=== PATIENT | female | born 1990 | race Caucasian/White ===

== ENCOUNTER 2017-12-17 03:10 | Inpatient (IN) | payer MEDICAID, OTHER ==
[2017-12-17] MEDS ORDERED: NACL 0.9% 1000 ML 1,000 ML IV ONE (04:40)
[2017-12-17 05:16] LABS: Basophils # (Auto) 0.1 K/mm3 (0.0-0.1); Basophils % (Auto) 0.5 % (0.0-1.8); Eosinophils # (Auto) 0.1 K/mm3 (0.0-0.4); Eosinophils % (Auto) 1.3 % (0.0-4.3); Hematocrit 34.7 % (30.3-42.9); Hemoglobin 12.1 gm/dl (10.1-14.3); Lymphocytes # (Auto) 1.7 K/mm3 (1.2-5.4); Lymphocytes % (Auto) 16.3 % (13.4-35.0); Mean Corpuscular HGB Conc 35 % (30-34); Mean Corpuscular Hemoglobin 32 pg (28-32); Mean Corpuscular Volume 93 fl (79-97); Monocytes # (Auto) 0.5 K/mm3 (0.0-0.8); Monocytes % (Auto) 5.1 % (0.0-7.3); Platelet Count 278 K/mm3 (140-440); Red Blood Count 3.73 M/mm3 (3.65-5.03); Red Cell Distribution Width 13.1 % (13.2-15.2)
[2017-12-17 05:31] LABS: Alanine Aminotransferase 13 units/L (7-56); Albumin 4.1 g/dL (3.9-5); BUN/Creatinine Ratio 12; Blood Urea Nitrogen 6 mg/dL (7-17); Calcium 9.4 mg/dL (8.4-10.2); Hemolysis Index 0
--- NOTE | 2017-12-17 07:01 | Emergency Department Report ---
ED Abdominal Pain HPI - General Chief Complaint: Abdominal Pain Stated Complaint: 15WKS WITH ABD PAIN Time Seen by Provider: 12/17/17 06:53 Source: patient Mode of arrival: Ambulatory Limitations: No Limitations - History of Present Illness Initial Comments: Patient is 27 years old female 2 para 1. Patient stated that she is 15 weeks . Patient presented to the ER complaining of upper abdominal pain mainly epigastric. Patient stated that pain woke her up from sleep. Patient stated that she is nauseated but no vomiting. She denied any fever. Patient also denied any vaginal bleeding or vaginal discharge. Complaint: abdominal pain - Related Data Home Medications Medication Instructions Recorded Confirmed Last Taken Vits96/Iron Fum/Folic 1 each PO DAILY 12/17/17 12/17/17 Unknown [ Tablet] Allergies Allergy/AdvReac Type Severity Reaction Status Date / Time No Known Allergies Allergy Verified 07/13/13 08:58 ED Review of Systems ROS: Stated complaint: 15WKS WITH ABD PAIN Other details as noted in HPI Comment: All other systems reviewed and negative Constitutional: denies: chills, fever ENT: denies: ear pain, throat pain Cardiovascular: denies: chest pain, palpitations Gastrointestinal: abdominal pain, nausea. denies: vomiting, diarrhea, constipation, hematemesis, melena, hematochezia Musculoskeletal: denies: back pain Neurological: denies: headache, weakness, numbness, paresthesias, confusion ED Past Medical Hx - Past Medical History Previous Medical History?: No Hx Hypertension: No Hx Congestive Heart Failure: No Hx Diabetes: No Hx Deep Vein Thrombosis: No Hx Renal Disease: No Hx Sickle Cell Disease: No Hx Seizures: No Hx Asthma: No Hx COPD: No Hx HIV: No - Surgical History Past Surgical History?: No - Social History Smoking Status: Never Smoker Substance Use Type: None - Medications Home Medications: Home Medications Medication Instructions Recorded Confirmed Last Taken Type Vits96/Iron Fum/Folic 1 each PO DAILY 12/17/17 12/17/17 Unknown History [ Tablet] ED Physical Exam - General Limitations: No Limitations General appearance: alert, in no apparent distress - Head Head exam: Present: atraumatic, normocephalic, normal inspection - Eye Eye exam: Present: normal appearance - ENT ENT exam: Present: normal exam, normal orophraynx, mucous membranes moist - Neck Neck exam: Present: normal inspection, full ROM. Absent: tenderness, meningismus, lymphadenopathy, thyromegaly - Respiratory Respiratory exam: Present: normal lung sounds bilaterally - Cardiovascular Cardiovascular Exam: Present: regular rate, normal rhythm, normal heart sounds - GI/Abdominal GI/Abdominal exam: Present: soft, normal bowel sounds. Absent: distended, tenderness, guarding, rebound, rigid, organomegaly, mass, bruit, pulsatile mass , hernia - Extremities Exam Extremities exam: Present: normal inspection, full ROM, normal capillary refill. Absent: pedal edema, calf tenderness - Back Exam Back exam: Present: normal inspection, full ROM - Neurological Exam Neurological exam: Present: alert, oriented X3, CN II-XII intact, normal gait, reflexes normal - Skin Skin exam: Present: warm, intact, normal color ED Course Vital Signs 12/17/17 12/17/17 12/17/17 04:26 07:18 07:20 Temperature 98 F 98.1 F Pulse Rate 75 63 Respiratory 24 14 14 Rate Blood Pressure 112/92 Blood Pressure 98/46 [Left] O2 Sat by Pulse 100 100 100 Oximetry - Reevaluation(s) Reevaluation #1: 12/17/17 10:51 I discussed the patient is Dr. Hernández train operations manager for OB. I informed the patient. She advised to admit the patient to the hospitalist and they will be consulted on the patient. ED Medical Decision Making - Lab Data Result diagrams: 12/17/17 04:43 12/17/17 04:43 - Radiology Data Radiology results: report reviewed Referring Physician: DORA LOUIE Patient Name: TATA ANDERSON Date of : 1990 Sex: Female Report Date: 2017-12-17 Report Status: Finalized Findings [facility] [address] [place] [address] Ultrasound Report Signed Patient: TATA DIANA MR#: [id number] : 1990 Acct:[id number] Age/Sex: 27 / F ADM Date: 12/17/17 Loc: ED Attending Dr: Ordering Physician: DORA LOUIE Date of Service: 09/13/18 Procedure(s): US OB <= 14 weeks fetus Accession Number(s): [id number] cc: DORA LOUIE OB ULTRASOUND History 15 weeks with abdominal pain. Technique: Transabdominal ultrasound with Doppler interrogation. Gestation: Single Position: Variable Amniotic Fluid: Qualitatively within normal limits MICHELLE = not measured cm Placenta: Anterior Placental Grade: 0 Heart Rate: 145 BPM Cervical length: Obscured BPD: 2.8 cm = 15 w 0 d HC: 10.3 cm = 14 w 6 d AC: 8.8 cm = 15 w 0 d FL: 1.7 cm = 15 w 0 d HC/AC Ratio: 1.18 Cephalic Index: 85.1 Clinical age = 14 w 0 d EDC: 06/17/18 US Gest. Age = 15 w or a d EDC: 06/10/18 IMPRESSION: Viable, single intrauterine as described. No acute abnormality is detected. Transcribed By: TTR Dictated By: CECILIA WEEKS JR, MD Electronically Authenticated By: CECILIA WEEKS JR, MD Signed Date/Time: 12/17/17 1022 DD/ 1019 TD/TT: 12/17/17 1022 Referring Physician: DORA LOUIE Patient Name: TATA ANDERSON Date of : 1990 Sex: Female Report Date: 2017-12-17 Report Status: Finalized Findings [facility] [address] [place] [address] Ultrasound Report Signed Patient: TATA DIANA MR#: [id number] : 1990 Acct:[id number] Age/Sex: 27 / F ADM Date: 12/17/17 Loc: ED Attending Dr: Ordering Physician: DORA LOUIE Date of Service: 12/17/17 Procedure(s): US abdomen limited Accession Number(s): [id number] cc: DORA LOUIE ULTRASOUND ABDOMEN LIMITED: TECHNIQUE: Transabdominal ultrasound with color Doppler interrogation. HISTORY: Right upper quadrant pain. COMPARISON: none. FINDINGS: LIVER: Normal. BILIARY SYSTEM: A few small shadowing gallstones are identified in the gallbladder. No evidence for biliary dilatation, wall thickening or surrounding fluid. The CBD measures 4 mm. PANCREAS: Normal. RIGHT KIDNEY: Normal. PROXIMAL AORTA: Normal. ASCITES: None. IMPRESSION: Cholelithiasis. No evidence for acute cholecystitis. Transcribed By: TTR Dictated By: CECILIA WEEKS JR, MD Electronically Authenticated By: CECILIA WEEKS JR, MD Signed Date/Time: 12/17/17 1019 DD/ 1018 TD/TT: 12/17/17 1019 - Medical Decision Making I discussed the patient is Dr. Mooney, he agreed to admit the patient to medical service. Critical care attestation.: If time is entered above; I have spent that time in minutes in the direct care of this critically ill patient, excluding procedure time. ED Disposition Clinical Impression: Abdominal pain affecting , Cholelithiasis, Acute pancreatitis Disposition: OP ADMIT IP TO THIS HOSP Is pt being admited?: Yes Condition: Stable Instructions: Abdominal Pain (ED) Referrals: PRIMARY CAREMD [Primary Care Provider] - 3-5 Days
[2017-12-17 07:10] LABS: Lipase 1080 units/L (13-60)
[2017-12-17 07:20] LABS: Bilirubin,Urine NEG (Negative); Blood,Urine NEG (Negative); Color,Urine Yellow (Yellow); Protein,Urine <15 mg/dL mg/dL (Negative); Urobilinogen,Urine < 2.0 mg/dL (<2.0)
[2017-12-17] MEDS ORDERED: ZOFRAN IV ONE (08:13)
--- NOTE | 2017-12-17 10:20 | Ultrasound Report ---
ULTRASOUND ABDOMEN LIMITED: TECHNIQUE: Transabdominal ultrasound with color Doppler interrogation. HISTORY: Right upper quadrant pain. COMPARISON: none. FINDINGS: LIVER: Normal. BILIARY SYSTEM: A few small shadowing gallstones are identified in the gallbladder. No evidence for biliary dilatation, wall thickening or surrounding fluid. The CBD measures 4 mm. PANCREAS: Normal. RIGHT KIDNEY: Normal. PROXIMAL AORTA: Normal. ASCITES: None. IMPRESSION: Cholelithiasis. No evidence for acute cholecystitis.
--- NOTE | 2017-12-17 10:23 | Ultrasound Report ---
OB ULTRASOUND History 15 weeks with abdominal pain. Technique: Transabdominal ultrasound with Doppler interrogation. Gestation: Single Position: Variable Amniotic Fluid: Qualitatively within normal limits MICHELLE = not measured cm Placenta: Anterior Placental Grade: 0 Heart Rate: 145 BPM Cervical length: Obscured BPD: 2.8 cm = 15 w 0 d HC: 10.3 cm = 14 w 6 d AC: 8.8 cm = 15 w 0 d FL: 1.7 cm = 15 w 0 d HC/AC Ratio: 1.18 Cephalic Index: 85.1 Clinical age = 14 w 0 d EDC: 06/17/18 US Gest. Age = 15 w or a d EDC: 06/10/18 IMPRESSION: Viable, single intrauterine as described. No acute abnormality is detected.
[2017-12-18] MEDS ORDERED: NACL 0.9% 1000 ML 1,000 ML IV SCH (02:00)
[2017-12-18] MEDS ORDERED: ZOFRAN IV PRN (06:29)
[2017-12-18] MEDS ORDERED: SODIUM CHLORIDE FLUSH SYRINGE 10 ML IV PRN (06:29)
[2017-12-18] MEDS ORDERED: DILAUDID IV PRN (06:29)
[2017-12-18] MEDS ORDERED: TYLENOL PO PRN (06:29)
[2017-12-18] MEDS ORDERED: MORPHINE IV PRN (06:29)
--- NOTE | 2017-12-18 06:34 | History and Physical Report ---
History of Present Illness Date of examination: 12/17/17 Date of admission: 12/17/17 11:29 Chief complaint: CC Abdominal pain since AM History of present illness: History of Present Illness: 27 years old female 2 para 1 15 weeks presented to the ER complaining of upper abdominal pain mainly epigastric. Patient stated that pain woke her up from sleep. Patient stated that she is nauseated but no vomiting. She denied any fever. Patient also denied any vaginal bleeding or vaginal discharge.Pain is about 6/10 Past Medical History None Surgical History None Social History Smoking Status: Never Smoker Substance Use Type: None Medications Home Medications: Home Medications Medication Instructions Recorded Confirmed Last Taken Type Vits96/Iron Fum/Folic 1 each PO DAILY 12/17/17 12/17/17 Unknown History [ Tablet] Review of Systems ROS: Stated complaint: 15WKS WITH ABD PAIN Other details as noted in HPI Comment: All other systems reviewed and negative Constitutional: denies: chills, fever ENT: denies: ear pain, throat pain Cardiovascular: denies: chest pain, palpitations Gastrointestinal: abdominal pain, nausea. denies: vomiting, diarrhea, constipation, hematemesis, melena, hematochezia Musculoskeletal: denies: back pain Neurological: denies: headache, weakness, numbness, paresthesias, confusion Medications and Allergies Allergies Allergy/AdvReac Type Severity Reaction Status Date / Time No Known Allergies Allergy Verified 07/13/13 08:58 Home Medications Medication Instructions Recorded Confirmed Last Taken Type Vits96/Iron Fum/Folic 1 each PO DAILY 12/17/17 12/17/17 Unknown History [ Tablet] Active Meds: Active Medications Acetaminophen (Tylenol) 650 mg PO Q4H PRN PRN Reason: Pain MILD(1-3)/Fever >100.5/BUSTAMANTE Famotidine (Pepcid) 20 mg IV BID HORTENCIA Hydromorphone HCl (Dilaudid) 1 mg IV Q3H PRN PRN Reason: Pain , Severe (7-10) Sodium Chloride (Nacl 0.9% 1000 Ml) 1,000 mls @ 150 mls/hr IV DIRECT HORTENCIA Last Admin: 12/18/17 01:34 Dose: 150 mls/hr Dextrose/Sodium Chloride (D5ns) 1,000 mls @ 100 mls/hr IV DIRECT HORTENCIA Morphine Sulfate (Morphine) 2 mg IV Q4H PRN PRN Reason: Pain, Moderate (4-6) Ondansetron HCl (Zofran) 4 mg IV Q3H PRN PRN Reason: Nausea And Vomiting Sodium Chloride (Sodium Chloride Flush Syringe 10 Ml) 10 ml IV BID HORTENCIA Sodium Chloride (Sodium Chloride Flush Syringe 10 Ml) 10 ml IV PRN PRN PRN Reason: LINE FLUSH Exam - Constitutional Vitals: Temp Pulse Resp BP Pulse Ox 97.6 F 81 16 93/61 98 12/18/17 00:41 12/18/17 00:41 12/18/17 00:41 12/18/17 00:41 12/18/17 00:41 General appearance: Present: mild distress, well-nourished - EENT Eyes: Present: PERRL ENT: hearing intact, clear oral mucosa - Neck Neck: Present: supple, normal ROM - Respiratory Respiratory effort: normal Respiratory: bilateral: CTA - Cardiovascular Heart rate: 80 Rhythm: regular Heart Sounds: Present: S1 & S2. Absent: rub, click - Extremities Extremities: pulses symmetrical, No edema Peripheral Pulses: within normal limits - Abdominal General gastrointestinal: Present: soft, tender (Epigastric region), non- distended, normal bowel sounds Female genitourinary: Present: normal - Integumentary Integumentary: Present: clear, warm, dry - Musculoskeletal Musculoskeletal: gait normal, strength equal bilaterally - Psychiatric Psychiatric: appropriate mood/affect, intact judgment & insight - Neurologic Neurologic: CNII-XII intact, moves all extremities Results - Labs CBC & Chem 7: 12/17/17 04:43 12/17/17 04:43 Labs: Laboratory Last Values WBC 10.5 K/mm3 (4.5-11.0) 12/17/17 04:43 RBC 3.73 M/mm3 (3.65-5.03) 12/17/17 04:43 Hgb 12.1 gm/dl (10.1-14.3) 12/17/17 04:43 Hct 34.7 % (30.3-42.9) 12/17/17 04:43 MCV 93 fl (79-97) 12/17/17 04:43 MCH 32 pg (28-32) 12/17/17 04:43 MCHC 35 % (30-34) H 12/17/17 04:43 RDW 13.1 % (13.2-15.2) L 12/17/17 04:43 Plt Count 278 K/mm3 (140-440) 12/17/17 04:43 Lymph % (Auto) 16.3 % (13.4-35.0) 12/17/17 04:43 [place] % (Auto) 5.1 % (0.0-7.3) 12/17/17 04:43 Eos % (Auto) 1.3 % (0.0-4.3) 12/17/17 04:43 Baso % (Auto) 0.5 % (0.0-1.8) 12/17/17 04:43 Lymph # 1.7 K/mm3 (1.2-5.4) 12/17/17 04:43 [place] # 0.5 K/mm3 (0.0-0.8) 12/17/17 04:43 Eos # 0.1 K/mm3 (0.0-0.4) 12/17/17 04:43 Baso # 0.1 K/mm3 (0.0-0.1) 12/17/17 04:43 Seg Neutrophils % 76.8 % (40.0-70.0) H 12/17/17 04:43 Seg Neutrophils # 8.0 K/mm3 (1.8-7.7) H 12/17/17 04:43 Sodium 136 mmol/L (137-145) L 12/17/17 04:43 Potassium 4.4 mmol/L (3.6-5.0) 12/17/17 04:43 Chloride 100.4 mmol/L (98-107) 12/17/17 04:43 Carbon Dioxide 22 mmol/L (22-30) 12/17/17 04:43 Anion Gap 18 mmol/L 12/17/17 04:43 BUN 6 mg/dL (7-17) L 12/17/17 04:43 Creatinine 0.5 mg/dL (0.7-1.2) L 12/17/17 04:43 Estimated GFR > 60 ml/min 12/17/17 04:43 BUN/Creatinine Ratio 12 % 12/17/17 04:43 Glucose 95 mg/dL (65-100) 12/17/17 04:43 Calcium 9.4 mg/dL (8.4-10.2) 12/17/17 04:43 Total Bilirubin 0.20 mg/dL (0.1-1.2) 12/17/17 04:43 AST 16 units/L (5-40) 12/17/17 04:43 ALT 13 units/L (7-56) 12/17/17 04:43 Alkaline Phosphatase 59 units/L (35-129) 12/17/17 04:43 Total Protein 6.9 g/dL (6.3-8.2) 12/17/17 04:43 Albumin 4.1 g/dL (3.9-5) 12/17/17 04:43 Albumin/Globulin Ratio 1.5 % 12/17/17 04:43 Lipase 1080 units/L (13-60) H 12/17/17 04:43 HCG, Qual Positive (Negative) 12/17/17 08:38 Urine Color Yellow (Yellow) 12/17/17 07:05 Urine Turbidity Slightly-cloudy (Clear) 12/17/17 07:05 Urine pH 6.0 (5.0-7.0) 12/17/17 07:05 Ur Specific [place] 1.005 (1.003-1.030) 12/17/17 07:05 Urine Protein <15 mg/dl mg/dL (Negative) 12/17/17 07:05 Urine Glucose (UA) Neg mg/dL (Negative) 12/17/17 07:05 Urine Ketones Neg mg/dL (Negative) 12/17/17 07:05 Urine Blood Neg (Negative) 12/17/17 07:05 Urine Nitrite Neg (Negative) 12/17/17 07:05 Urine Bilirubin Neg (Negative) 12/17/17 07:05 Urine Urobilinogen < 2.0 mg/dL (<2.0) 12/17/17 07:05 Ur Leukocyte Esterase Tr (Negative) 12/17/17 07:05 Urine WBC (Auto) 1.0 /HPF (0.0-6.0) 12/17/17 07:05 Urine RBC (Auto) 3.0 /HPF (0.0-6.0) 12/17/17 07:05 U Epithel Cells (Auto) 8.0 /HPF (0-13.0) 12/17/17 07:05 - Imaging and Cardiology Imaging and Cardiology: u/s IMPRESSION: Viable, single intrauterine as described. No acute abnormality is detected. ULTRASOUND ABDOMEN LIMITED: TECHNIQUE: Transabdominal ultrasound with color Doppler interrogation. HISTORY: Right upper quadrant pain. COMPARISON: none. FINDINGS: LIVER: Normal. BILIARY SYSTEM: A few small shadowing gallstones are identified in the gallbladder. No evidence for biliary dilatation, wall thickening or surrounding fluid. The CBD measures 4 mm. PANCREAS: Normal. RIGHT KIDNEY: Normal. PROXIMAL AORTA: Normal.ASCITES: None. IMPRESSION: Cholelithiasis. No evidence for acute cholecystitis. Assessment and Plan Advance Directives: Yes (FC) VTE prophylaxis?: Mechanical Plan of care discussed with patient/family: Yes - Patient Problems (1) Acute pancreatitis Current Visit: Yes Status: Acute Qualifiers: Pancreatitis type: unspecified pancreatitis type Plan to address problem: Lipase around 1000 CT abdomen not done b/c of Mild to moderate pancreatitis Conservative Tx NPO Pain management (2) Cholelithiasis Current Visit: Yes Status: Chronic Qualifiers: Biliary obstruction: without biliary obstruction Plan to address problem: Few Gall stones Surgery consult No Cholecystitis (3) Current Visit: Yes Status: Acute Qualifiers: Weeks of gestation: 15 weeks Qualified Code(s): Z3A.15 - 15 weeks gestation of 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
[2017-12-18] MEDS ORDERED: D5NS 1,000 ML IV SCH (07:00)
--- NOTE | 2017-12-18 07:44 | Progress Note ---
Assessment and Plan Assessment and plan: 27-year-old female was admitted yesterday for the management of pancreatitis, cholelithiasis after patient presented with epigastric pain Patient is 15 weeks Acute pancreatitis - Bowel rest, nothing by mouth, IV fluids Cholelithiasis - Surgery consulted 15 weeks of gestation - RECORD TABULATING CLERK consulted DVT prophylaxis - SCDs Disposition - Continue inpatient care History Interval history: No nursing issues overnight Hospitalist Physical - Physical exam Narrative exam: Not in cardiopulmonary distress. The patient appeared well nourished and normally developed. Vital signs as documented. Head exam is unremarkable. No scleral icterus . Neck is without jugular venous distension, thyromegaly, or carotid bruits. Lungs are clear to auscultation. Cardiac exam reveals regular rate and Rhythm. First and second heart sounds normal. No murmurs, rubs or gallops. Abdominal exam reveals normal bowel sounds, no masses, no organomegaly and no aortic enlargement. Extremities are nonedematous and both femoral and pedal pulses are normal. DIRECTOR OF REGULATORY AFFAIRS: Alert and oriented 3. No focal weakness. - Constitutional Vitals: Temp Pulse Resp BP Pulse Ox 98.0 F 77 16 93/52 99 12/18/17 05:08 12/18/17 05:08 12/18/17 05:08 12/18/17 05:08 12/18/17 05:08 General appearance: Present: mild distress, well-nourished Results - Labs CBC & Chem 7: 12/17/17 04:43 12/17/17 04:43 Labs: Laboratory Last Values WBC 10.5 K/mm3 (4.5-11.0) 12/17/17 04:43 RBC 3.73 M/mm3 (3.65-5.03) 12/17/17 04:43 Hgb 12.1 gm/dl (10.1-14.3) 12/17/17 04:43 Hct 34.7 % (30.3-42.9) 12/17/17 04:43 MCV 93 fl (79-97) 12/17/17 04:43 MCH 32 pg (28-32) 12/17/17 04:43 MCHC 35 % (30-34) H 12/17/17 04:43 RDW 13.1 % (13.2-15.2) L 12/17/17 04:43 Plt Count 278 K/mm3 (140-440) 12/17/17 04:43 Lymph % (Auto) 16.3 % (13.4-35.0) 12/17/17 04:43 [place] % (Auto) 5.1 % (0.0-7.3) 12/17/17 04:43 Eos % (Auto) 1.3 % (0.0-4.3) 12/17/17 04:43 Baso % (Auto) 0.5 % (0.0-1.8) 12/17/17 04:43 Lymph # 1.7 K/mm3 (1.2-5.4) 12/17/17 04:43 [place] # 0.5 K/mm3 (0.0-0.8) 12/17/17 04:43 Eos # 0.1 K/mm3 (0.0-0.4) 12/17/17 04:43 Baso # 0.1 K/mm3 (0.0-0.1) 12/17/17 04:43 Seg Neutrophils % 76.8 % (40.0-70.0) H 12/17/17 04:43 Seg Neutrophils # 8.0 K/mm3 (1.8-7.7) H 12/17/17 04:43 Sodium 136 mmol/L (137-145) L 12/17/17 04:43 Potassium 4.4 mmol/L (3.6-5.0) 12/17/17 04:43 Chloride 100.4 mmol/L (98-107) 12/17/17 04:43 Carbon Dioxide 22 mmol/L (22-30) 12/17/17 04:43 Anion Gap 18 mmol/L 12/17/17 04:43 BUN 6 mg/dL (7-17) L 12/17/17 04:43 Creatinine 0.5 mg/dL (0.7-1.2) L 12/17/17 04:43 Estimated GFR > 60 ml/min 12/17/17 04:43 BUN/Creatinine Ratio 12 % 12/17/17 04:43 Glucose 95 mg/dL (65-100) 12/17/17 04:43 Calcium 9.4 mg/dL (8.4-10.2) 12/17/17 04:43 Total Bilirubin 0.20 mg/dL (0.1-1.2) 12/17/17 04:43 AST 16 units/L (5-40) 12/17/17 04:43 ALT 13 units/L (7-56) 12/17/17 04:43 Alkaline Phosphatase 59 units/L (35-129) 12/17/17 04:43 Total Protein 6.9 g/dL (6.3-8.2) 12/17/17 04:43 Albumin 4.1 g/dL (3.9-5) 12/17/17 04:43 Albumin/Globulin Ratio 1.5 % 12/17/17 04:43 Lipase 1080 units/L (13-60) H 12/17/17 04:43 HCG, Qual Positive (Negative) 12/17/17 08:38 Urine Color Yellow (Yellow) 12/17/17 07:05 Urine Turbidity Slightly-cloudy (Clear) 12/17/17 07:05 Urine pH 6.0 (5.0-7.0) 12/17/17 07:05 Ur Specific [place] 1.005 (1.003-1.030) 12/17/17 07:05 Urine Protein <15 mg/dl mg/dL (Negative) 12/17/17 07:05 Urine Glucose (UA) Neg mg/dL (Negative) 12/17/17 07:05 Urine Ketones Neg mg/dL (Negative) 12/17/17 07:05 Urine Blood Neg (Negative) 12/17/17 07:05 Urine Nitrite Neg (Negative) 12/17/17 07:05 Urine Bilirubin Neg (Negative) 12/17/17 07:05 Urine Urobilinogen < 2.0 mg/dL (<2.0) 12/17/17 07:05 Ur Leukocyte Esterase Tr (Negative) 12/17/17 07:05 Urine WBC (Auto) 1.0 /HPF (0.0-6.0) 12/17/17 07:05 Urine RBC (Auto) 3.0 /HPF (0.0-6.0) 12/17/17 07:05 U Epithel Cells (Auto) 8.0 /HPF (0-13.0) 12/17/17 07:05
[2017-12-18 08:07] LABS: Basophils # (Auto) 0.1 K/mm3 (0.0-0.1); Basophils % (Auto) 0.8 % (0.0-1.8); Eosinophils # (Auto) 0.1 K/mm3 (0.0-0.4); Eosinophils % (Auto) 0.8 % (0.0-4.3); Hematocrit 35.4 % (30.3-42.9); Hemoglobin 12.4 gm/dl (10.1-14.3); Lymphocytes # (Auto) 2.1 K/mm3 (1.2-5.4); Lymphocytes % (Auto) 21.9 % (13.4-35.0); Mean Corpuscular HGB Conc 35 % (30-34); Mean Corpuscular Hemoglobin 33 pg (28-32); Mean Corpuscular Volume 94 fl (79-97); Monocytes # (Auto) 0.5 K/mm3 (0.0-0.8); Monocytes % (Auto) 5.2 % (0.0-7.3); Platelet Count 264 K/mm3 (140-440); Red Blood Count 3.78 M/mm3 (3.65-5.03); Red Cell Distribution Width 13.2 % (13.2-15.2)
[2017-12-18 08:35] LABS: Alanine Aminotransferase 11 units/L (7-56); Albumin 3.8 g/dL (3.9-5); BUN/Creatinine Ratio 14; Blood Urea Nitrogen 7 mg/dL (7-17); Calcium 9.1 mg/dL (8.4-10.2); Hemolysis Index 1
[2017-12-18] MEDS ORDERED: PEPCID IV SCH (10:00)
[2017-12-18] MEDS ORDERED: SODIUM CHLORIDE FLUSH SYRINGE 10 ML IV SCH (10:00)
[2017-12-18 12:11] VITALS: BP 98/53
--- NOTE | 2017-12-18 13:18 | Consultation ---
History of Present Illness Consult date: 12/18/17 Reason for consult: gallstones Requesting physician: SILVESTRE ECHEVARRIA Chief complaint: abdominal pain - History of present illness History of present illness: 27 F who is 15wk presented early morning with an acute onset of LUQ pain. Woke her up at 2am. Has never had anything like this before. Denies heartburn sx's. Was at a birthday green party earlier in the day and had a very large meal. About 1 hour after the pain started, it resolved. Denies any N/ V. Did have low back pain, but not mid back. Feels fine now. No abdominal pain, N/V. Would like to eat. Past History Past Medical History: No medical history Past Surgical History: No surgical history Social history: smoking (occasional), alcohol abuse (occasion - but not since she has been ) Family history: no significant family history Medications and Allergies Allergies Allergy/AdvReac Type Severity Reaction Status Date / Time No Known Allergies Allergy Verified 07/13/13 08:58 Home Medications Medication Instructions Recorded Confirmed Last Taken Type Vits96/Iron Fum/Folic 1 each PO DAILY 12/17/17 12/17/17 Unknown History [ Tablet] Active Meds: Active Medications Acetaminophen (Tylenol) 650 mg PO Q4H PRN PRN Reason: Pain MILD(1-3)/Fever >100.5/BUST[place]ANTE Famotidine (Pepcid) 20 mg IV BID [facility] Last Admin: 12/18/17 09:03 Dose: 20 mg Hydromorphone HCl (Dilaudid) 1 mg IV Q3H PRN PRN Reason: Pain , Severe (7-10) Dextrose/Sodium Chloride (D5ns) 1,000 mls @ 100 mls/hr IV DIRECT [facility] Last Admin: 12/18/17 08:22 Dose: 100 mls/hr Morphine Sulfate (Morphine) 2 mg IV Q4H PRN PRN Reason: Pain, Moderate (4-6) Ondansetron HCl (Zofran) 4 mg IV Q3H PRN PRN Reason: Nausea And Vomiting Sodium Chloride (Sodium Chloride Flush Syringe 10 Ml) 10 ml IV BID [facility] Last Admin: 12/18/17 09:03 Dose: 10 ml Sodium Chloride (Sodium Chloride Flush Syringe 10 Ml) 10 ml IV PRN PRN PRN Reason: LINE FLUSH Review of Systems - Constitutional no fever, no chills, no weakness, no poor appetite, no chronic pain - Cardiovascular no chest pain - Respiratory no cough, no shortness of breath - Gastrointestinal no abdominal pain, no nausea, no vomiting, no diarrhea, no constipation, no change in bowel habits, no hematemesis, no coffee ground emesis, no BRBPR, no melena, no hematochezia, no loss of appetite, no heartburn, no indigestion, no dyspepsia/bloating - Genitourinary Genitourinary: no dysuria - Muskuloskeletal low back pain - Integumentary no rash, no pruritis, no wounds, no jaundice Exam Vital Signs Temp Pulse Resp BP Pulse Ox 98 F 75 24 112/92 100 12/17/17 04:26 12/17/17 04:26 12/17/17 04:26 12/17/17 04:12/17/17 04:26 - General physical appearance Positive: no distress, no pain, other (healthy appearing young woman) - Eyes Positive: normal occular movement. Negative: icteric - Respiratory Positive: normal expansion, normal respiratory effort, clear to auscultation - Cardiovascular Rhythm: regular - Abdomen Abdomen: Present: soft, bowel sounds normal. Absent: tender, distended, masses , rigid, wound, surgical scars - Integumentary no rash, no growths, no abnormal pigmentation - Neurologic Neurologic: alert and oriented to time, place and person, motor strength and sensation are grossly intact - Psychiatric Psychiatric: appropriate mood/affect, intact judgment & insight Results - Labs 12/18/17 07:16 12/18/17 07:16 Abnormal lab results 12/18/17 12/18/17 Range/Units 07:16 07:16 MCH 33 H (28-32) pg MCHC 35 H (30-34) % Seg Neutrophils % 71.3 H (40.0-70.0) % Carbon Dioxide 21 L (22-30) mmol/L Creatinine 0.5 L (0.7-1.2) mg/dL Albumin 3.8 L (3.9-5) g/dL Diabetes panel 12/18/17 12/18/17 Range/Units 07:16 07:16 Sodium 137 (137-145) mmol/L Potassium 3.9 (3.6-5.0) mmol/L Chloride 103.8 (98-107) mmol/L Carbon Dioxide 21 L (22-30) mmol/L BUN 7 (7-17) mg/dL Creatinine 0.5 L (0.7-1.2) mg/dL Glucose 71 (65-100) mg/dL Hemoglobin A1c 4.9 (4-6) % Calcium 9.1 (8.4-10.2) mg/dL AST 13 (5-40) units/L ALT 11 (7-56) units/L Alkaline Phosphatase 52 (35-129) units/L Total Protein 6.8 (6.3-8.2) g/dL Albumin 3.8 L (3.9-5) g/dL Calcium panel 12/18/17 Range/Units 07:16 Calcium 9.1 (8.4-10.2) mg/dL Albumin 3.8 L (3.9-5) g/dL Pituitary panel 12/18/17 Range/Units 07:16 Sodium 137 (137-145) mmol/L Potassium 3.9 (3.6-5.0) mmol/L Chloride 103.8 (98-107) mmol/L Carbon Dioxide 21 L (22-30) mmol/L BUN 7 (7-17) mg/dL Creatinine 0.5 L (0.7-1.2) mg/dL Glucose 71 (65-100) mg/dL Calcium 9.1 (8.4-10.2) mg/dL Adrenal panel 12/18/17 Range/Units 07:16 Sodium 137 (137-145) mmol/L Potassium 3.9 (3.6-5.0) mmol/L Chloride 103.8 (98-107) mmol/L Carbon Dioxide 21 L (22-30) mmol/L BUN 7 (7-17) mg/dL Creatinine 0.5 L (0.7-1.2) mg/dL Glucose 71 (65-100) mg/dL Calcium 9.1 (8.4-10.2) mg/dL Total Bilirubin 0.50 (0.1-1.2) mg/dL AST 13 (5-40) units/L ALT 11 (7-56) units/L Alkaline Phosphatase 52 (35-129) units/L Total Protein 6.8 (6.3-8.2) g/dL Albumin 3.8 L (3.9-5) g/dL - Imaging US - abdomen: report reviewed, image reviewed Assessment and Plan - Patient Problems (1) Cholelithiasis Current Visit: Yes Status: Chronic Qualifiers: Biliary obstruction: without biliary obstruction Plan to address problem: Pt stable. I think she has asymptomatic cholelithiasis. I doubt she had pancreatitis. It would not have cleared in 1 hour and the lipase would not have gone from 1000 to 21 in 24hrs! She give no history of prior attacks of gallstone related pain. I would try her on a regular diet and if she does well, she may be d/c'd from my perspective. I would not recommend surgery at this time or electively. Explained to patient. Discussed with Dr. Reina. Please call with questions. time=30min
--- NOTE | 2017-12-18 13:53 | Discharge Summary ---
Providers - Providers Date of Admission: 12/17/17 11:29 Attending physician: MAHSA YUAN MD 12/17/17 10:49 Consult to Physician [CONS] Stat Comment: DR GIBBS NOTIFIED [id number] Consulting Provider: KAREN GIBBS Physician Instructions: Reason For Exam: 15 weeks , acute pancreatitis, cholelithia 12/18/17 06:50 Consult to Physician [CONS] Routine Comment: Consulting Provider: IVAN RADER Physician Instructions: Reason For Exam: cholelthiasis 12/21/17 06:32 Consult to Dietitian/Nutrition [CONS] Routine Physician Instructions: Reason For Exam: Reason for Consult: Write/Manage TPN/PPN Primary care physician: [employer] WORK[employer] Hospitalization Reason for admission: Abdominal pain Condition: Stable Pertinent studies: Abdominal U/s: IMPRESSION: Cholelithiasis. No evidence for acute cholecystitis. U/S: IMPRESSION: Viable, single intrauterine as described. No acute abnormality is detected. Hospital course: 27 years old female 2 para 1 15 weeks presented to the ER complaining of upper abdominal pain mainly epigastric. Patient stated that pain woke her up from sleep. Patient stated that she is nauseated but no vomiting. She denied any fever. Patient also denied any vaginal bleeding or vaginal discharge.Pain is about 6/10. Patient was admitted for possible pancreatitis and was nothing by mouth, pain medication. Next day pain resolved, lipase levels trended down to normal, patient tolerated regular diet and discharged home. Patient was evaluated at surgery and cleared for discharge. Patient was not given medications that may affect the baby. patient advised to have regular ANC follow up. Patient was hemodynamically stable. patient said she is a social drinker and advised her to abstain from alcohol for the suspicion of pancreatitis and being . Disposition: DC-01 TO HOME OR SELFCARE Time spent for discharge: 32 minutes - Discharge Diagnoses (1) Abdominal pain affecting Status: Acute (2) Acute pancreatitis Status: Ruled-out Qualifiers: Pancreatitis type: unspecified pancreatitis type (3) Status: Acute Qualifiers: Weeks of gestation: 15 weeks Qualified Code(s): Z3A.15 - 15 weeks gestation of (4) Cholelithiasis Status: Chronic Qualifiers: Biliary obstruction: without biliary obstruction Core Measure Documentation - Palliative Care Palliative Care/ Comfort Measures: Not Applicable - Core Measures Any of the following diagnoses?: none Exam - Physical Exam Narrative exam: Not in cardiopulmonary distress. The patient appeared well nourished and normally developed. Vital signs as documented. Head exam is unremarkable. No scleral icterus . Neck is without jugular venous distension, thyromegaly, or carotid bruits. Lungs are clear to auscultation. Cardiac exam reveals regular rate and Rhythm. First and second heart sounds normal. No murmurs, rubs or gallops. Abdominal exam reveals normal bowel sounds, no masses, no organomegaly and no aortic enlargement. Extremities are nonedematous and both femoral and pedal pulses are normal. 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 No focal weakness. - Constitutional Vitals: Temp Pulse Resp BP Pulse Ox 98.6 F 90 16 98/53 99 12/18/17 12:08 12/18/17 12:08 12/18/17 12:08 12/18/17 12:08 12/18/17 12:08 Plan Activity: no restrictions Weight Bearing Status: Full Weight Bearing Diet: low fat Additional Instructions: F/U at [facility] in 1-2 weeks Follow up with: PRIMARY MD BAILEE [Primary Care Provider] - 3-5 Days
== END 2017-12-18 18:47 | disposition home or self-care (01) | DRG 781 ==
LOC: ED 03:10 → 3A 11:29
PROVIDERS: ADMIT Internal Medicine; ATTEND Internal Medicine
DX: O99.612 Diseases of the digestive system complicating pregnancy, second trimester (principal); K80.20 Calculus of gallbladder without cholecystitis without obstruction; Z3A.15 15 weeks gestation of pregnancy; O99.332 Smoking (tobacco) complicating pregnancy, second trimester; F17.200 Nicotine dependence, unspecified, uncomplicated; O99.312 Alcohol use complicating pregnancy, second trimester; F10.10 Alcohol abuse, uncomplicated; Z79.899 Other long term (current) drug therapy
CPT/HCPCS: 36415; 76705; 76801; 76805; 80053; 81001; 82150; 83036; 83690; 84703; 85025; 96361; 96374; J2405; J7030; J7042

== ENCOUNTER 2018-06-07 18:42 | Inpatient (IN) | payer MEDICAID, OTHER ==
[2018-06-07] MEDS ORDERED: LACTATED RINGERS 1,000 ML ONE (21:53)
[2018-06-07] MEDS ORDERED: STADOL IV PRN (21:59)
[2018-06-07] MEDS ORDERED: LACTATED RINGERS 1,000 ML IV SCH (22:00)
[2018-06-07] MEDS ORDERED: AMPICILLIN/NS 2 GM/100 ML 2 GM/100 ML BAG IV ONE (22:01)
[2018-06-07 23:05] LABS: Hematocrit 35.9 % (30.3-42.9); Hemoglobin 12.3 gm/dl (10.1-14.3); Mean Corpuscular HGB Conc 34 % (30-34); Mean Corpuscular Volume 98 fl (79-97); Platelet Count 267 K/mm3 (140-440); Red Blood Count 3.65 M/mm3 (3.65-5.03); Red Cell Distribution Width 13.1 % (13.2-15.2)
--- NOTE | 2018-06-08 01:32 | History and Physical Report ---
History of Present Illness Date of examination: 06/08/18 Date of admission: 06/07/18 22:15 Chief complaint: Contractions History of present illness: 27yo G 2 P 1 0 0 1 @ 38 weeks 5 days here with c/o contractions that started on 06/07/18 @ 5pm. She reports positive FMs but denies VB or LOF. She is a [facility] patient. No records available. She denies any complications related to this . She reports h/o pancreatitis. GBS is unknown. Past History Past Medical History: other (pancreatitis) Past Surgical History: no surgical history Family/Genetic History: none Social history: , lives with family, full code. denies: smoking, alcohol abuse, prescription drug abuse, IV drug use - Obstetrical History Expected Date of Delivery: 06/17/18 Actual Gestation: 38 Week(s) 5 Day(s) : 2 Para: 1 Hx # Term Pregnancies: 0 Number of Pregnancies: 0 Spontaneous Abortions: 0 Induced : 0 Number of Living Children: 1 #1 Infant Gender: Male year: [birth year]) Birthweight: 3.175 kg (7 lbs) Method of Delivery: Vaginal Gestational age at delivery: 39 Complications: none Medications and Allergies Allergies Allergy/AdvReac Type Severity Reaction Status Date / Time No Known Allergies Allergy Verified 07/13/13 08:58 Home Medications Medication Instructions Recorded Confirmed Last Taken Type Vits96/Iron Fum/Folic 1 each PO DAILY 12/17/17 06/08/18 06/07/18 09:00 History [ Tablet] Active Meds: Active Medications Butorphanol Tartrate (Stadol) 2 mg IV Q2H PRN PRN Reason: Labor Pain Ampicillin Sodium (Ampicillin/Ns 1 Gm/50 Ml) 1 gm in 50 mls @ 100 mls/hr IV Q4HR HORTENCIA Lactated Ringer's (Lactated Ringers) 1,000 mls @ 125 mls/hr IV DIRECT HORTENCIA Review of Systems All systems: negative - Vital Signs Vital signs: Vital Signs Temp Pulse Resp BP 98.6 F 83 20 112/66 06/07/18 18:55 06/07/18 18:55 06/07/18 18:55 06/07/18 18:55 Temp Pulse Resp BP Pulse Ox 98.6 F 78 20 108/64 97 06/07/18 23:25 06/07/18 23:54 06/07/18 23:25 06/07/18 23:25 06/07/18 23:54 - Obstetrical FHR: auscultation normal, category 1 FHR comments: baseline 130, moderate variability, 15x15 accels, no decels Uterine Contraction Monitor Mode: External Cervical Dilatation: 4 (per RN) Cervical Effacement Percentage: 50 (per RN) station: -3 (per RN) Uterine Contraction Pattern: Regular Results Result Diagrams: 06/07/18 21:50 Abnormal lab results 06/07/18 Range/Units 21:50 WBC 11.8 H (4.5-11.0) K/mm3 MCV 98 H (79-97) fl MCH 34 H (28-32) pg RDW 13.1 L (13.2-15.2) % All other labs normal. Assessment and Plan - Patient Problems (1) 38 weeks gestation of Current Visit: Yes Status: Acute (2) Active labor at term Current Visit: Yes Status: Acute Plan to address problem: Admit to L&D with routine labor orders Start Pitocin for labor augmentation Start Ampicillin for GBS prophylaxis Anticipate vaginal delivery
[2018-06-08] MEDS ORDERED: SUBLIMAZE IV PRN (01:48)
[2018-06-08] MEDS ORDERED: MINERAL OIL PO PRN (01:48)
[2018-06-08] MEDS ORDERED: BRETHINE SUB-Q PRN (01:48)
[2018-06-08] MEDS ORDERED: XYLOCAINE 2% INFILTRATI ONE (01:48)
[2018-06-08] MEDS ORDERED: BRETHINE IVP PRN (01:48)
[2018-06-08] MEDS ORDERED: PITOCin/NS 20 UNIT/1000ML DRIP 20 UNITS/1,000 ML BAG IV SCH (02:00)
[2018-06-08] MEDS ORDERED: PITOCin/NS 30 UNIT/500ML 30 UNITS/500 ML BAG IV SCH (03:00)
[2018-06-08] MEDS ORDERED: AMPICILLIN/NS 1 GM/50 ML 1 GM/50 ML BAG IV SCH (06:00)
[2018-06-08] MEDS ORDERED: CYTOTEC PR ONE (07:05)
[2018-06-08] MEDS ORDERED: CYTOTEC ONE (07:08)
--- NOTE | 2018-06-08 07:23 | Procedure Note ---
OB Delivery Note - Delivery Date of Delivery: 06/08/18 (06:54) Surgeon: SITA SANTANA (DAFNE) Estimated blood loss: 300cc - Vaginal Delivery presentation: vertex Delivery position: OA Intrapartum events: meconium Delivery induction: none Delivery augmentation: pitocin Delivery monitor: external FHT, external uterine Route of delivery: (06:54) Delivery placenta: spontaneous (07:03) Delivery cord: nuchal cord (x1, loose. Reduced after delivery of head and prior to delivery of body) Episiotomy: none Delivery laceration: none Anesthesia: intravenous Delivery comments: of a vigorous term 6 lbs 3 oz female infant on 06/08/18 @ 06:54 with NICU team at bedside. Baby placed [id number] on maternal abdomen, dried and bulb- suctioned. After 5 mins, umbilical cord double-clamped by DAFNE Santana and cut by FOB. Cord blood collected. Spontaneous delivery of placenta, William-side presenting @ 07:03 accompanied by heavy lochia. Fundal massage initiated. IV Pitocin delayed due to problems with pump. Cytotec 800mcg AL administered and IV Pitocin bolus later initiated. Fundus F/ML/U-2. Moderate to scant lochia noted. Placenta intact; was discarded. Perineum intact. Mom and baby in stable condition. - Infant A at 1 minute: 8 at 5 minutes: 9 Infant Gender: Female (6 lbs 3 oz (2801 gm); 19 in)
[2018-06-08] MEDS ORDERED: LANSINOH TP PRN (07:33)
[2018-06-08] MEDS ORDERED: BENADRYL PO PRN (07:33)
[2018-06-08] MEDS ORDERED: PHENERGAN PO PRN (07:33)
[2018-06-08] MEDS ORDERED: ZOFRAN IV PRN (07:33)
[2018-06-08] MEDS ORDERED: NORCO 5/325 PO PRN (07:33)
[2018-06-08] MEDS ORDERED: TUCKS PAD TP PRN (07:33)
[2018-06-08] MEDS ORDERED: TYLENOL PO PRN (07:33)
[2018-06-08] MEDS ORDERED: PHENERGAN PR PRN (07:33)
[2018-06-08] MEDS ORDERED: SODIUM CHLORIDE FLUSH SYRINGE 10 ML IV NR (08:00)
[2018-06-08] MEDS ORDERED: DULCOLAX PR PRN (10:00)
[2018-06-08] MEDS: PRENATAL VITAMIN PO SCH (10:31)
[2018-06-08] MEDS: IBUPROFEN PO SCH ×2 (10:31→17:33)
[2018-06-08] MEDS: FEOSOL PO SCH (10:31)
[2018-06-08 20:10] LABS: Hematocrit 31.6 % (30.3-42.9); Hemoglobin 11.3 gm/dl (10.1-14.3)
[2018-06-08] MEDS ORDERED: MILK OF MAGNESIA PO PRN (22:00)
[2018-06-09] MEDS: IBUPROFEN PO SCH ×3 (00:15→14:13)
[2018-06-09] MEDS: FEOSOL PO SCH ×2 (00:15→14:14)
[2018-06-09] MEDS ORDERED: M-M-R II VACCINE SUB-Q ONE (10:00)
--- NOTE | 2018-06-09 11:19 | Progress Note ---
Assessment and Plan A: PP Day #1 Stable P: Follow Routine Orders Depo Provera 150mg IM x 1 dose prior to discharge D/C home today RTO in 6 Weeks Subjective - Subjective Date of service: 06/09/18 Patient reports: appetite normal, voiding normally, pain well controlled, flatus, ambulating normally [place]: doing well, bottle feeding (and ) Objective - Vital Signs Latest vital signs: Vital Signs Temp Pulse Resp BP BP Pulse Ox 06/09/18 07:35 98.3 F 69 18 104/49 98 06/08/18 23:57 98.6 F 85 18 102/68 98 06/08/18 20:51 98.0 F 18 116/63 06/08/18 16:25 98 F 75 18 108/73 99 06/08/18 12:59 98.2 F 72 24 101/64 99 Intake and Output 06/08/18 06/09/18 06/09/18 22:59 06:59 14:59 Intake Total 360 200 480 Balance 360 200 480 Intake: Oral 360 200 480 Other: Total, Intake Amount 360 200 480 # Voids Void 1 - Exam Breasts: Present: normal Cardiovascular: Present: Regular rate Lungs: Present: Clear to auscultation, Normal air movement Abdomen: Present: normal appearance, soft, normal bowel sounds Uterus: Present: normal, firm, fundal height below umbilicus
--- NOTE | 2018-06-09 11:20 | Discharge Summary ---
Providers - Providers Date of Admission: 06/07/18 22:15 Date of discharge: 06/09/18 Attending physician: ALIYA CARR Primary care physician: ALIYA CARR Hospitalization Reason for admission: active labor Delivery: Episiotomy: none Laceration: none Other procedures: none complications: none Discharge diagnosis: IUP at term delivered baby: female Condition at discharge: Good Disposition: DC-01 TO HOME OR SELFCARE Plan - Provider Discharge Summary Activity: routine, no sex for 6 weeks, no heavy lifting 4 weeks, no strenuous exercise Diet: routine Instructions: routine Additional instructions: [] Smoking cessation referral if applicable(refer to patient education folder for contact #) [] Refer to [facility] Booklet Call your doctor immediately for: * Fever > 100.5 * Heavy vaginal bleeding ( >1 pad per hour) * Severe persistent headache * Shortness of breath * Reddened, hot, painful area to leg or breast * Drainage or odor from incision. * Keep incision clean and dry at all times and follow doctor's instructions regarding bathing/showering - Follow up plan Follow up: ALIYA CARR MD [Primary Care Provider] - 6 Weeks
[2018-06-09] MEDS: PRENATAL VITAMIN PO SCH (14:12)
[2018-06-09] MEDS ORDERED: DEPO-PROVERA (CONTRACEPTION) IM ONE (14:16)
[2018-06-09 17:53] VITALS: BP 95/55
== END 2018-06-09 16:12 | disposition home or self-care (01) | DRG 807 ==
LOC: TRG 18:42 → LD 22:15 → OB 06-08 08:38
PROVIDERS: ADMIT Obstetrics & Gynecology; ATTEND Obstetrics & Gynecology
PROC: 10E0XZZ Delivery of Products of Conception, External Approach (ICD-10-PCS; principal; 2018-06-08)
DX: O77.0 Labor and delivery complicated by meconium in amniotic fluid (principal); Z37.0 Single live birth; O69.81X0 Labor and delivery complicated by cord around neck, without compression, not applicable or unspecified; Z3A.38 38 weeks gestation of pregnancy; Z80.42 Family history of malignant neoplasm of prostate
CPT/HCPCS: 36415; 85014; 85018; 85027; 86592; 86850; 86900; 86901; 96365; G0378; J0290; J0595; J1050; J2590; J7120

== ENCOUNTER 2018-08-28 23:49 | Inpatient (IN) | payer MEDICAID, OTHER ==
[2018-08-29 01:08] LABS: Basophils # (Auto) 0.1 K/mm3 (0.0-0.1); Basophils % (Auto) 0.4 % (0.0-1.8); Eosinophils # (Auto) 0.1 K/mm3 (0.0-0.4); Eosinophils % (Auto) 0.7 % (0.0-4.3); Hematocrit 38.2 % (30.3-42.9); Hemoglobin 13.1 gm/dl (10.1-14.3); Lymphocytes # (Auto) 2.1 K/mm3 (1.2-5.4); Lymphocytes % (Auto) 14.3 % (13.4-35.0); Mean Corpuscular HGB Conc 34 % (30-34); Mean Corpuscular Volume 95 fl (79-97); Monocytes # (Auto) 0.7 K/mm3 (0.0-0.8); Monocytes % (Auto) 4.6 % (0.0-7.3); Platelet Count 285 K/mm3 (140-440); Red Blood Count 4.04 M/mm3 (3.65-5.03); Red Cell Distribution Width 12.3 % (13.2-15.2)
[2018-08-29 01:31] LABS: Alanine Aminotransferase 124 units/L (7-56); Albumin 4.2 g/dL (3.9-5); BUN/Creatinine Ratio 23; Blood Urea Nitrogen 18 mg/dL (7-17); Calcium 9.4 mg/dL (8.4-10.2); Hemolysis Index 4
[2018-08-29] MEDS ORDERED: BENTYL IM ONE (03:24)
[2018-08-29] MEDS ORDERED: SUBLIMAZE IV ONE (03:24)
[2018-08-29] MEDS ORDERED: ZOFRAN IV ONE (03:24)
--- NOTE | 2018-08-29 03:32 | Emergency Department Report ---
HPI - General Chief Complaint: Abdominal Pain Time Seen by Provider: 08/29/18 03:18 - HPI HPI: Room 8 The patient is a 28-year-old female presenting with chief complaint of abdominal pain. Patient states she's had intermittent right upper quadrant abdominal pain since May 2018. Patient states she was told was cholelithiasis but she was at the time. Patient states most recent episode began last night with a "horrible" right upper quadrant pain associated with nausea and vomiting. Patient denies diarrhea or fever. The patient states the pain increases after meals. Patient gives her pain a score of 7/10 Location: Abdomen Duration: [See above] Quality: "Horrible" Severity:7/10 Modifying factors: [see above] Context: [see above] Mode of transportation: [not driving] ED Past Medical Hx - Past Medical History Previous Medical History?: No - Surgical History Past Surgical History?: No - Family History Family history: no significant - Social History Smoking Status: Never Smoker Substance Use Type: None (denies illicit drug use) - Medications Home Medications: Home Medications Medication Instructions Recorded Confirmed Last Taken Type Vits96/Iron Fum/Folic 1 each PO DAILY 12/17/17 06/08/18 06/07/18 09:00 History [ Tablet] ED Review of Systems ROS: Stated complaint: ABD PAIN Other details as noted in HPI Constitutional: denies: fever Eyes: denies: eye pain ENT: denies: ear pain Respiratory: no symptoms reported Cardiovascular: denies: chest pain Endocrine: no symptoms reported Gastrointestinal: abdominal pain, nausea, vomiting. denies: diarrhea Genitourinary: denies: dysuria Musculoskeletal: back pain Neurological: denies: headache Physical Exam - Physical Exam Vital Signs: Vital Signs 08/29/18 08/29/18 08/29/18 00:05 00:42 03:09 Temperature 97.7 F 97.7 F Pulse Rate 65 68 82 Respiratory 18 18 18 Rate Blood Pressure 107/56 107/56 Blood Pressure 111/60 [Left] O2 Sat by Pulse 100 100 100 Oximetry Physical Exam: GENERAL: The patient is well-developed well-nourished female lying on stretcher not appearing to be in acute distress. [] HEENT: Normocephalic. Atraumatic. Extraocular motions are intact. Patient has moist mucous membranes. NECK: Supple. Trachea midline CHEST/LUNGS: Clear to auscultation. There is no respiratory distress noted. HEART/CARDIOVASCULAR: Regular. There is no tachycardia. There is no gallop rub or murmur. ABDOMEN: Abdomen is soft, with mild discomfort to palpation in the midepigastric region but greater discomfort to palpation in the right upper quadrant. The remainder of the abdomen is nontender. Patient has normal bowel sounds. There is no abdominal distention. SKIN: There is no rash. There is no edema. There is no diaphoresis. NEURO: The patient is awake, alert, and oriented. The patient is cooperative. The patient has normal speech MUSCULOSKELETAL: There is no evidence of acute injury. ED Course Vital Signs 08/29/18 08/29/18 08/29/18 00:05 00:42 03:09 Temperature 97.7 F 97.7 F Pulse Rate 65 68 82 Respiratory 18 18 18 Rate Blood Pressure 107/56 107/56 Blood Pressure 111/60 [Left] O2 Sat by Pulse 100 100 100 Oximetry - Consultations Consultation #1: 08/29/18 04:36 Surgery paged 08/29/18 04:[address] Dominique- recommends admitting the patient to the hospital for MRCP. Recommends Levaquin and Flagyl antibiotics given the leukocytosis. ED Medical Decision Making - Lab Data Result diagrams: 08/29/18 00:50 08/29/18 00:50 Laboratory Tests 08/29/18 08/29/18 08/29/18 00:50 00:50 00:50 WBC 15.0 H RBC 4.04 Hgb 13.1 Hct 38.2 MCV 95 MCH 32 MCHC 34 RDW 12.3 L Plt Count 285 Lymph % (Auto) 14.3 Garden % (Auto) 4.6 Eos % (Auto) 0.7 Baso % (Auto) 0.4 Lymph # 2.1 Garden # 0.7 Eos # 0.1 Baso # 0.1 Seg Neutrophils % 80.0 H Seg Neutrophils # 12.0 H Sodium 140 Potassium 3.4 L Chloride 102.0 Carbon Dioxide 25 Anion Gap 16 BUN 18 H Creatinine 0.8 Estimated GFR > 60 BUN/Creatinine Ratio 23 Glucose 112 H Calcium 9.4 Total Bilirubin 0.50 AST 129 H ALT 124 H Alkaline Phosphatase 92 Total Protein 7.6 Albumin 4.2 Albumin/Globulin Ratio 1.2 Lipase 36 HCG, Qual Negative - Radiology Data Radiology results: report reviewed (right upper quadrant ultrasound), image reviewed (right upper quadrant ultrasound) [facility] [address] [place] [address] Ultrasound Report Signed Patient: TATA DIANA MR#: [id number] : 1990 Acct:[id number] Age/Sex: 28 / F ADM Date: 08/28/18 Loc: ED Attending Dr: Ordering Physician: RACHEL MCGHEE MD Date of Service: 08/29/18 Procedure(s): US abdomen limited Accession Number(s): [id number] cc: RACHEL MCGHEE MD PROCEDURE: US GALLBLADDER TECHNIQUE: Real-time sonography in multiple planes of the gallbladder fossa and CBD with imaging of the adjacent liver, pancreas, and right kidney was performed with image documentation. CPT 30305 HISTORY: Abdominal pain COMPARISONS: None . FINDINGS: Liver: Normal size and echotexture with no evidence of cystic or solid mass lesion. Gallbladder: There are gallstones. There is no wall thickening or pericholecystic fluid.. Intrahepatic bile ducts: Normal . Extrahepatic bile ducts: The common bile duct is dilated at 8.6 mm.. Pancreas: Normal as visualized with suboptimal depiction of the pancreatic tail. Right kidney: Normal echotexture. No focal renal mass, calculus, or hydronephr osis. Other: No free fluid. IMPRESSION: There is cholelithiasis without specific evidence of cholecystitis. There is biliary ductal dilatation. . This document is electronically signed by Gregg Arnett MD., Aug 29 2018 04:29:20 AM ET Transcribed By: CO Dictated By: GREGG ARNETT MD Electronically Authenticated By: GREGG ARNETT MD Signed Date/Time: 08/29/18 0431 DD/ 0412 TD/TT: 08/29/18 0413 - Differential Diagnosis cholelithiasis, cholecystitis, biliary pancreatitis, peptic ulcer disease, Critical care attestation.: If time is entered above; I have spent that time in minutes in the direct care of this critically ill patient, excluding procedure time. ED Disposition Clinical Impression: Acute abdominal pain, Cholelithiasis, Leukocytosis Disposition: OP ADMIT IP TO THIS HOSP Is pt being admited?: Yes Does the pt Need Aspirin: No Condition: Fair Instructions: Abdominal Pain (ED) Referrals: NAREN GILLIAM MD [Primary Care Provider] - 3-5 Days Time of Disposition: 04:59 (hospitalist notified (Dr Susy Hercules))
--- NOTE | 2018-08-29 04:31 | Ultrasound Report ---
PROCEDURE: US GALLBLADDER TECHNIQUE: Real-time sonography in multiple planes of the gallbladder fossa and CBD with imaging of the adjacent liver, pancreas, and right kidney was performed with image documentation. CPT 14602 HISTORY: Abdominal pain COMPARISONS: None . FINDINGS: Liver: Normal size and echotexture with no evidence of cystic or solid mass lesion. Gallbladder: There are gallstones. There is no wall thickening or pericholecystic fluid.. Intrahepatic bile ducts: Normal . Extrahepatic bile ducts: The common bile duct is dilated at 8.6 mm.. Pancreas: Normal as visualized with suboptimal depiction of the pancreatic tail. Right kidney: Normal echotexture. No focal renal mass, calculus, or hydronephrosis. Other: No free fluid. IMPRESSION: There is cholelithiasis without specific evidence of cholecystitis. There is biliary marleen michelle dilatation. . This document is electronically signed by Gregg Driver MD., Aug 29 2018 04:29:20 AM ET
[2018-08-29] MEDS ORDERED: LEVAQUIN 500MG/100ML 500 MG/100 ML BAG IV ONE (04:55)
[2018-08-29] MEDS ORDERED: FLAGYL 500 MG/100 ML 500 MG/100 ML BAG IV ONE (04:55)
[2018-08-29] MEDS ORDERED: ZOFRAN IV PRN (05:11)
[2018-08-29] MEDS ORDERED: TYLENOL PO PRN (05:11)
[2018-08-29] MEDS ORDERED: MORPHINE IV PRN (05:11)
[2018-08-29] MEDS ORDERED: SODIUM CHLORIDE FLUSH SYRINGE 10 ML IV PRN (05:11)
[2018-08-29] MEDS ORDERED: DILAUDID IV PRN (05:13)
--- NOTE | 2018-08-29 05:46 | History and Physical Report ---
<JA ANDERS - Last Filed: 08/29/18 05:41> History of Present Illness Date of examination: 08/29/18 Date of admission: 08/29/2018 Chief complaint: Abdominal pain, nausea, vomiting History of present illness: 28-year-old female diagnosed with cholelithiasis in December 2017 at 15 weeks presents to [facility] ED with complaints of severe right upper quadrant and left upper quadrant abdominal pain. Patient states that sometime last night she began to feel nauseous and had emesis 1, followed by severe right upper quadrant pain which radiated to her back and right upper extremity. She describes the pain as sharp and constant and rates it 10/10. Her pain is relieved by pain medicine. Admits abdominal pain,n/v Denies hemoptysis, fever, diarrhea, chest pain, dyspnea, or recent sick contact Past History Past Medical History: other (diagnosed with cholelithiasis in Dec 2017) Past Surgical History: No surgical history Social history: lives with family Family history: no significant family history Medications and Allergies Allergies Allergy/AdvReac Type Severity Reaction Status Date / Time No Known Allergies Allergy Verified 07/13/13 08:58 Home Medications Medication Instructions Recorded Confirmed Last Taken Type Vits96/Iron Fum/Folic 1 each PO DAILY 12/17/17 06/08/18 06/07/18 09:00 History [ Tablet] Active Meds: Active Medications Acetaminophen (Tylenol) 650 mg PO Q4H PRN PRN Reason: Pain MILD(1-3)/Fever >100.5/BUSTAMANTE Heparin Sodium (Porcine) (Heparin) 5,000 unit SUB-Q Q12HR HORTENCIA Hydromorphone HCl (Dilaudid) 0.5 mg IV Q3H PRN PRN Reason: Pain , Severe (7-10) Stop: 08/30/18 23:59 Levofloxacin/Dextrose (Levaquin 500mg/100ml) 500 mg in 100 mls @ 100 mls/hr IV ONCE ONE Stop: 08/29/18 05:54 Sodium Chloride (Nacl 0.9% 1000 Ml) 1,000 mls @ 100 mls/hr IV DIRECT HORTENCIA Levofloxacin/Dextrose (Levaquin 500mg/100ml) 500 mg in 100 mls @ 100 mls/hr IV Q24H HORTENCIA; Protocol Metronidazole (Flagyl 500 Mg/100 Ml) 500 mg in 100 mls @ 100 mls/hr IV Q8HR S [facility]; Protocol Morphine Sulfate (Morphine) 2 mg IV Q4H PRN PRN Reason: Pain, Moderate (4-6) Stop: 08/30/18 23:59 Ondansetron HCl (Zofran) 4 mg IV Q8H PRN PRN Reason: Nausea And Vomiting Sodium Chloride (Sodium Chloride Flush Syringe 10 Ml) 10 ml IV BID HORTENCIA Sodium Chloride (Sodium Chloride Flush Syringe 10 Ml) 10 ml IV PRN PRN PRN Reason: LINE FLUSH Review of Systems All systems: negative (reviewed and no additional remarkable complaints except as noted below) Gastrointestinal: abdominal pain, nausea, vomiting Exam - Physical Exam Narrative exam: Physical exam General appearance: Present: No acute distress, pleasant, well-nourished, alert and oriented 3 adult female - EENT Eyes: Present: PERRL, EOM intact ENT: hearing intact, normal dentition - Neck Neck: Present: supple, normal ROM - Respiratory Respiratory effort: Non-labored Respiratory: Clear throughout - Cardiovascular Heart rate: 81 (bpm) Rhythm: Sinus rhythm regular Heart Sounds: Present: S1 & S2. Absent: rub, click - Extremities Extremities: no ischemia, pulses intact, - Peripheral Assessment Peripheral Pulses: within normal limits - Abdominal General gastrointestinal: soft, tenderness FRANCK, normal bowel sounds - Integumentary Integumentary: Present: warm, dry - Musculoskeletal Musculoskeletal: Able to move all extremities - Psychiatric Psychiatric: CN II-XII intact, cooperative - Constitutional Vitals: Temp Pulse Resp BP Pulse Ox 97.7 F 81 18 99/52 100 08/29/18 00:42 08/29/18 05:00 08/29/18 05:00 08/29/18 05:00 08/29/18 05:00 Results - Labs CBC & Chem 7: 08/29/18 00:50 08/29/18 00:50 Labs: Laboratory Last Values WBC 15.0 K/mm3 (4.5-11.0) H 08/29/18 00:50 RBC 4.04 M/mm3 (3.65-5.03) 08/29/18 00:50 Hgb 13.1 gm/dl (10.1-14.3) 08/29/18 00:50 Hct 38.2 % (30.3-42.9) 08/29/18 00:50 MCV 95 fl (79-97) 08/29/18 00:50 MCH 32 pg (28-32) 08/29/18 00:50 MCHC 34 % (30-34) 08/29/18 00:50 RDW 12.3 % (13.2-15.2) L 08/29/18 00:50 Plt Count 285 K/mm3 (140-440) 08/29/18 00:50 Lymph % (Auto) 14.3 % (13.4-35.0) 08/29/18 00:50 [place] % (Auto) 4.6 % (0.0-7.3) 08/29/18 00:50 Eos % (Auto) 0.7 % (0.0-4.3) 08/29/18 00:50 Baso % (Auto) 0.4 % (0.0-1.8) 08/29/18 00:50 Lymph # 2.1 K/mm3 (1.2-5.4) 08/29/18 00:50 [place] # 0.7 K/mm3 (0.0-0.8) 08/29/18 00:50 Eos # 0.1 K/mm3 (0.0-0.4) 08/29/18 00:50 Baso # 0.1 K/mm3 (0.0-0.1) 08/29/18 00:50 Seg Neutrophils % 80.0 % (40.0-70.0) H 08/29/18 00:50 Seg Neutrophils # 12.0 K/mm3 (1.8-7.7) H 08/29/18 00:50 Sodium 140 mmol/L (137-145) 08/29/18 00:50 Potassium 3.4 mmol/L (3.6-5.0) L 08/29/18 00:50 Chloride 102.0 mmol/L (98-107) 08/29/18 00:50 Carbon Dioxide 25 mmol/L (22-30) 08/29/18 00:50 16 mmol/L 08/29/18 00:50 BUN 18 mg/dL (7-17) H 08/29/18 00:50 0.8 mg/dL (0.7-1.2) 08/29/18 00:50 Estimated GFR > 60 ml/min 08/29/18 00:50 23 % 08/29/18 00:50 Glucose 112 mg/dL (65-100) H 08/29/18 00:50 Calcium 9.4 mg/dL (8.4-10.2) 08/29/18 00:50 0.50 mg/dL (0.1-1.2) 08/29/18 00:50 AST 129 units/L (5-40) H 08/29/18 00:50 ALT 124 units/L (7-56) H 08/29/18 00:50 92 units/L (35-129) 08/29/18 00:50 7.6 g/dL (6.3-8.2) 08/29/18 00:50 4.2 g/dL (3.9-5) 08/29/18 00:50 1.2 % 08/29/18 00:50 36 units/L (13-60) 08/29/18 00:50 HCG, Qual Negative (Negative) 08/29/18 00:50 Short CBC 08/29/18 Range/Units 00:50 WBC 15.0 H (4.5-11.0) K/mm3 Hgb 13.1 (10.1-14.3) gm/dl Hct 38.2 (30.3-42.9) % Plt Count 285 (140-440) K/mm3 BMP 08/29/18 00:50 Sodium 140 Potassium 3.4 L Chloride 102.0 Carbon Dioxide 25 BUN 18 H Creatinine 0.8 Glucose 112 H Calcium 9.4 Liver Function 08/29/18 Range/Units 00:50 Total Bilirubin 0.50 (0.1-1.2) mg/dL AST 129 H (5-40) units/L ALT 124 H (7-56) units/L Alkaline Phosphatase 92 (35-129) units/L Albumin 4.2 (3.9-5) g/dL - Imaging and Cardiology US - abdomen: report reviewed, image reviewed (There is cholelithiasis without specific evidence of cholecystitis. There is biliary ) Assessment and Plan Assessment and plan: 28-year-old female diagnosed with cholelithiasis in December 2017 at 15 weeks presents to [facility] ED with complaints of severe right upper quadrant and left upper quadrant abdominal pain. WBC elevated at 15.0, and Liver enzymes elevated AST 129/ ALT 124. Abdominal ultrasound revealed cholelithiasis without specific evidence of cholecystitis. Dr. Dominique (Gen Surg) has been consulted, and advised to start pt on Levaquin and Flagyl with plans for MRCP. Patient will be admitted to the surgical unit. Acute abdominal pain Cholelithiasis Leukocytosis Hypokalemia Elevated liver enzymes Plan: Continue supportive care Pain management Start Levaquin 500 mg daily and Flagyl 500 mg every 8 hours Monitor CBC Monitor liver enzymes Monitor electrolytes; replete as needed MRCP pending Dr. Dominique following DVT PPX on Heparin Advance Directives: No VTE prophylaxis?: Mechanical Reason for no VTE Prophylaxis: Anticoagulant allergy Plan of care discussed with patient/family: Yes <LIZETTE DEL REAL - Last Filed: 08/29/18 06:22> History of Present Illness Date of admission: 08/29/18 05:11 Medications and Allergies Active Meds: Active Medications Acetaminophen (Tylenol) 650 mg PO Q4H PRN PRN Reason: Pain MILD(1-3)/Fever >100.5/[place]AMANTE Heparin Sodium (Porcine) (Heparin) 5,000 unit SUB-Q Q12HR [facility]ORTENCIA Hydromorphone HCl (Dilaudid) 0.5 mg IV Q3H PRN PRN Reason: Pain , Severe (7-10) Stop: 08/30/18 23:59 Sodium Chloride (Nacl 0.9% 1000 Ml) 1,000 mls @ 100 mls/hr IV DIRECT HORTENCIA Last Admin: 08/29/18 06:18 Dose: 100 mls/hr Documented by: Levofloxacin/Dextrose (Levaquin 500mg/100ml) 500 mg in 100 mls @ 100 mls/hr IV Q24H HORTENCIA; Protocol Metronidazole (Flagyl 500 Mg/100 Ml) 500 mg in 100 mls @ 100 mls/hr IV Q8HR HORTENCIA; Protocol Potassium Chloride (Kcl 10meq/100ml) 10 meq in 100 mls @ 100 mls/hr IV Q1H HORTENCIA Stop: 08/29/18 09:59 Morphine Sulfate (Morphine) 2 mg IV Q4H PRN PRN Reason: Pain, Moderate (4-6) Stop: 08/30/18 23:59 Ondansetron HCl (Zofran) 4 mg IV Q8H PRN PRN Reason: Nausea And Vomiting Sodium Chloride (Sodium Chloride Flush Syringe 10 Ml) 10 ml IV BID HORTENCIA Sodium Chloride (Sodium Chloride Flush Syringe 10 Ml) 10 ml IV PRN PRN PRN Reason: LINE FLUSH Exam - Constitutional Vitals: Temp Pulse Resp BP Pulse Ox 97.7 F 59 L 17 98/62 100 08/29/18 00:42 08/29/18 05:49 08/29/18 05:49 08/29/18 05:49 08/29/18 05:49 Results - Labs CBC & Chem 7: 08/29/18 00:50 08/29/18 00:50 Labs: Laboratory Last Values WBC 15.0 K/mm3 (4.5-11.0) H 08/29/18 00:50 RBC 4.04 M/mm3 (3.65-5.03) 08/29/18 00:50 Hgb 13.1 gm/dl (10.1-14.3) 08/29/18 00:50 Hct 38.2 % (30.3-42.9) 08/29/18 00:50 MCV 95 fl (79-97) 08/29/18 00:50 MCH 32 pg (28-32) 08/29/18 00:50 MCHC 34 % (30-34) 08/29/18 00:50 RDW 12.3 % (13.2-15.2) L 08/29/18 00:50 Plt Count 285 K/mm3 (140-440) 08/29/18 00:50 Lymph % (Auto) 14.3 % (13.4-35.0) 08/29/18 00:50 Carl[place] % (Auto) 4.6 % (0.0-7.3) 08/29/18 00:50 Eos % (Auto) 0.7 % (0.0-4.3) 08/29/18 00:50 Baso % (Auto) 0.4 % (0.0-1.8) 08/29/18 00:50 Lymph # 2.1 K/mm3 (1.2-5.4) 08/29/18 00:50 [place] # 0.7 K/mm3 (0.0-0.8) 08/29/18 00:50 Eos # 0.1 K/mm3 (0.0-0.4) 08/29/18 00:50 Baso # 0.1 K/mm3 (0.0-0.1) 08/29/18 00:50 Seg Neutrophils % 80.0 % (40.0-70.0) H 08/29/18 00:50 Seg Neutrophils # 12.0 K/mm3 (1.8-7.7) H 08/29/18 00:50 Sodium 140 mmol/L (137-145) 08/29/18 00:50 Potassium 3.4 mmol/L (3.6-5.0) L 08/29/18 00:50 Chloride 102.0 mmol/L (98-107) 08/29/18 00:50 Carbon Dioxide 25 mmol/L (22-30) 08/29/18 00:50 16 mmol/L 08/29/18 00:50 BUN 18 mg/dL (7-17) H 08/29/18 00:50 0.8 mg/dL (0.7-1.2) 08/29/18 00:50 Estimated GFR > 60 ml/min 08/29/18 00:50 23 % 08/29/18 00:50 Glucose 112 mg/dL (65-100) H 08/29/18 00:50 Calcium 9.4 mg/dL (8.4-10.2) 08/29/18 00:50 0.50 mg/dL (0.1-1.2) 08/29/18 00:50 AST 129 units/L (5-40) H 08/29/18 00:50 ALT 124 units/L (7-56) H 08/29/18 00:50 92 units/L (35-129) 08/29/18 00:50 7.6 g/dL (6.3-8.2) 08/29/18 00:50 4.2 g/dL (3.9-5) 08/29/18 00:50 1.2 % 08/29/18 00:50 36 units/L (13-60) 08/29/18 00:50 HCG, Qual Negative (Negative) 08/29/18 00:50 Assessment and Plan Assessment and plan: 28year old woman who has been having havin RUQ pain that started during her . Her symptoms improve and started again 3 weeks post- and flare every 2 to 3 weeks. Her symptoms worsened last night so she came to the ER for further care. Physicl exam significant for ruq tenderness, no rebound or guarding. Agree with plan of care as stated above, surgery consult.
[2018-08-29] MEDS ORDERED: NACL 0.9% 1000 ML 1,000 ML ONE (06:17)
[2018-08-29] MEDS: NACL 0.9% 1000 ML 1,000 ML IV SCH (06:18)
[2018-08-29] MEDS ORDERED: BENADRYL IV PRN (06:40)
[2018-08-29] MEDS: HEPARIN SUB-Q SCH ×2 (09:53→21:40)
[2018-08-29] MEDS: SODIUM CHLORIDE FLUSH SYRINGE 10 ML IV SCH ×2 (09:55→21:41)
[2018-08-29] MEDS: KCL 10MEQ/100ML 10 MEQ/100 ML BAG IV SCH ×3 (09:55→14:55)
[2018-08-29] MEDS ORDERED: ADRENALIN ONE (12:05)
--- NOTE | 2018-08-29 13:19 | Event Note ---
Date: 08/29/18 Patient with acute cholecystitis. I have seen and examined her. Discussed with Surgeon.
--- NOTE | 2018-08-29 13:49 | Consultation ---
History of Present Illness Consult date: 08/29/18 Chief complaint: abdominal pain - History of present illness History of present illness: 28 yo F with 1-2 days of RUQ abdominal pain, acute and gradually worsened. Pain is sharp and radiates to the back. She has had symptoms like this before and was told it could be her pancreas or gallbladder. +n/v x1. No f/c. She feels better today. N/V resolved and she feels hungry. Abdominal pain controlled. Past History Past Medical History: other (diagnosed with cholelithiasis in Dec 2017) Past Surgical History: No surgical history Social history: lives with family Family history: no significant family history Medications and Allergies Allergies Allergy/AdvReac Type Severity Reaction Status Date / Time No Known Allergies Allergy Verified 07/13/13 08:58 Home Medications Medication Instructions Recorded Confirmed Last Taken Type Vits96/Iron Fum/Folic 1 each PO DAILY 12/17/17 06/08/18 06/07/18 09:00 History [ Tablet] Active Meds: Active Medications Acetaminophen (Tylenol) 650 mg PO Q4H PRN PRN Reason: Pain MILD(1-3)/Fever >100.5/BUSTAMANTE Diphenhydramine HCl (Benadryl) 25 mg IV Q6H PRN PRN Reason: Itching Last Admin: 08/29/18 06:54 Dose: 25 mg Documented by: Heparin Sodium (Porcine) (Heparin) 5,000 unit SUB-Q Q12HR HORTENCIA Last Admin: 08/29/18 09:53 Dose: Not Given Documented by: Hydromorphone HCl (Dilaudid) 0.5 mg IV Q3H PRN PRN Reason: Pain , Severe (7-10) Stop: 08/30/18 23:59 Sodium Chloride (Nacl 0.9% 1000 Ml) 1,000 mls @ 100 mls/hr IV DIRECT HORTENCIA Last Admin: 08/29/18 06:18 Dose: 100 mls/hr Documented by: Levofloxacin/Dextrose (Levaquin 500mg/100ml) 500 mg in 100 mls @ 100 mls/hr IV Q24H HORTENCIA; Protocol Metronidazole (Flagyl 500 Mg/100 Ml) 500 mg in 100 mls @ 100 mls/hr IV Q8HR HORTENCIA; Protocol Morphine Sulfate (Morphine) 2 mg IV Q4H PRN PRN Reason: Pain, Moderate (4-6) Stop: 08/30/18 23:59 Ondansetron HCl (Zofran) 4 mg IV Q8H PRN PRN Reason: Nausea And Vomiting Potassium Chloride (Potassium Chloride) 40 meq FEEDTUBE Q6H [facility] Stop: 08/29/18 20:01 Sodium Chloride (Sodium Chloride Flush Syringe 10 Ml) 10 ml IV BID [facility] Last Admin: 08/29/18 09:55 Dose: 10 ml Documented by: Sodium Chloride (Sodium Chloride Flush Syringe 10 Ml) 10 ml IV PRN PRN PRN Reason: LINE FLUSH Review of Systems All systems: negative (10 pt ROS performed and negative except for that listed in HPI) Exam Vital Signs Temp Pulse Resp BP Pulse Ox 97.7 F 65 18 107/56 100 08/29/18 00:05 08/29/18 00:05 08/29/18 00:05 08/29/18 00:05 08/29/18 00:05 Narrative exam: Gen: AAOx3. NAD ENT: No scleral icterus or conjunctival pallor CV: s1, S2+ resp: even and unlabored Abd: soft, ND, mild RUQ TTP. no r/r/g Ext: no c/c/e Results - Labs 08/29/18 00:50 08/29/18 00:50 Abnormal lab results 08/29/18 08/29/18 Range/Units 00:50 00:50 WBC 15.0 H (4.5-11.0) K/mm3 RDW 12.3 L (13.2-15.2) % Seg Neutrophils % 80.0 H (40.0-70.0) % Seg Neutrophils # 12.0 H (1.8-7.7) K/mm3 Potassium 3.4 L (3.6-5.0) mmol/L BUN 18 H (7-17) mg/dL Glucose 112 H (65-100) mg/dL AST 129 H (5-40) units/L ALT 124 H (7-56) units/L Diabetes panel 08/29/18 Range/Units 00:50 Sodium 140 (137-145) mmol/L Potassium 3.4 L (3.6-5.0) mmol/L Chloride 102.0 (98-107) mmol/L Carbon Dioxide 25 (22-30) mmol/L BUN 18 H (7-17) mg/dL Creatinine 0.8 (0.7-1.2) mg/dL Glucose 112 H (65-100) mg/dL Calcium 9.4 (8.4-10.2) mg/dL AST 129 H (5-40) units/L ALT 124 H (7-56) units/L Alkaline Phosphatase 92 (35-129) units/L Total Protein 7.6 (6.3-8.2) g/dL Albumin 4.2 (3.9-5) g/dL Calcium panel 08/29/18 Range/Units 00:50 Calcium 9.4 (8.4-10.2) mg/dL Albumin 4.2 (3.9-5) g/dL Pituitary panel 08/29/18 Range/Units 00:50 Sodium 140 (137-145) mmol/L Potassium 3.4 L (3.6-5.0) mmol/L Chloride 102.0 (98-107) mmol/L Carbon Dioxide 25 (22-30) mmol/L BUN 18 H (7-17) mg/dL Creatinine 0.8 (0.7-1.2) mg/dL Glucose 112 H (65-100) mg/dL Calcium 9.4 (8.4-10.2) mg/dL Adrenal panel 08/29/18 Range/Units 00:50 Sodium 140 (137-145) mmol/L Potassium 3.4 L (3.6-5.0) mmol/L Chloride 102.0 (98-107) mmol/L Carbon Dioxide 25 (22-30) mmol/L BUN 18 H (7-17) mg/dL Creatinine 0.8 (0.7-1.2) mg/dL Glucose 112 H (65-100) mg/dL Calcium 9.4 (8.4-10.2) mg/dL Total Bilirubin 0.50 (0.1-1.2) mg/dL AST 129 H (5-40) units/L ALT 124 H (7-56) units/L Alkaline Phosphatase 92 (35-129) units/L Total Protein 7.6 (6.3-8.2) g/dL Albumin 4.2 (3.9-5) g/dL - Imaging US - abdomen: report reviewed, image reviewed Assessment and Plan 28 yo F with 1. acute cholecystitis 2. dilated common bile duct Plan; 1. ok for clear liquids today, NPO p MN 2. MRCP ordered - no tech on weekends. Will be done tomorrow 3. prn pain control 4. IV abx 5. repeat CMP and CBC in am 6. cholecystectomy prior to discharge. Discussed plan with patient and she understands Thank you, please call with questions.
[2018-08-29] MEDS: FLAGYL 500 MG/100 ML 500 MG/100 ML BAG IV SCH ×2 (14:49→21:40)
[2018-08-29] MEDS: POTASSIUM CHLORIDE FEEDTUBE SCH ×2 (15:30→21:40)
[2018-08-29 22:11] LABS: Bilirubin,Urine NEG (Negative); Blood,Urine LG (Negative); Color,Urine Yellow (Yellow); Protein,Urine <15 mg/dL mg/dL (Negative); Urobilinogen,Urine < 2.0 mg/dL (<2.0)
[2018-08-30] MEDS: LEVAQUIN 500MG/100ML 500 MG/100 ML BAG IV SCH (05:06)
[2018-08-30] MEDS: NACL 0.9% 1000 ML 1,000 ML IV SCH (05:19)
[2018-08-30] MEDS: FLAGYL 500 MG/100 ML 500 MG/100 ML BAG IV SCH ×3 (06:05→21:52)
[2018-08-30 11:28] LABS: Basophils # (Auto) 0.1 K/mm3 (0.0-0.1); Basophils % (Auto) 0.6 % (0.0-1.8); Eosinophils # (Auto) 0.1 K/mm3 (0.0-0.4); Eosinophils % (Auto) 1.2 % (0.0-4.3); Hematocrit 39.1 % (30.3-42.9); Hemoglobin 13.3 gm/dl (10.1-14.3); Lymphocytes # (Auto) 1.5 K/mm3 (1.2-5.4); Lymphocytes % (Auto) 18.6 % (13.4-35.0); Mean Corpuscular HGB Conc 34 % (30-34); Mean Corpuscular Volume 95 fl (79-97); Monocytes # (Auto) 0.3 K/mm3 (0.0-0.8); Monocytes % (Auto) 4.1 % (0.0-7.3); Platelet Count 275 K/mm3 (140-440); Red Cell Distribution Width 12.4 % (13.2-15.2)
--- NOTE | 2018-08-30 11:28 | Progress Note ---
Assessment and Plan 28 yo F with 1. acute cholecystitis 2. dilated common bile duct MRCP reviewed with radiologist Dr. Babin and + for choledocolithiasis Plan; 1. consult GI - D/W Dr. Key 2. NPO for now, unless no intervention planned by GI today. Then may have clear liquids. 3. prn pain control 4. IV abx 5. repeat CMP and CBC in am 6. cholecystectomy prior to discharge. Discussed plan with patient and she understands. All risks, benefits, and alternatives to surgery discussed and consent obtained. Thank you, please call with questions. Subjective Date of service: 08/30/18 Narrative: Pt seen and examined. No acute complaints or overnight events. Tolerating clears. No n/v Objective Vital Signs - 12hr 08/29/18 08/30/18 08/30/18 23:59 05:47 07:29 Temperature 98.0 F 98.3 F 98.3 F Pulse Rate 66 69 92 H Respiratory 18 18 16 Rate Blood Pressure 108/60 96/61 Blood Pressure 151/77 [Left] O2 Sat by Pulse 98 99 97 Oximetry - General physical appearance Narrative Exam: Gen: AAOx3. NAD CV: s1, s2+ resp; even and unlabored Abd: soft, ND, + TTP in epigastrum and RUQ. no r/r/g Ext: no c/c/e - Labs 08/30/18 11:07 08/30/18 11:07
[2018-08-30 11:50] LABS: Alanine Aminotransferase 350 units/L (7-56); BUN/Creatinine Ratio 10; Blood Urea Nitrogen 8 mg/dL (7-17); Calcium 9.2 mg/dL (8.4-10.2); Hemolysis Index 5
--- NOTE | 2018-08-30 12:04 | Progress Note ---
Assessment and Plan Assessment and plan: Acute cholecystitis On Levaquin and flagyl GI and surg following dilated common bile duct GI consulted keep NPO overnight leukocytosis due to cholecystitis Hypokalemia, resolved Full code status History Interval history: less abd pain nausea No more vomiting Hospitalist Physical - Physical exam Narrative exam: Gen: Not in acute distress, Lying in bed HEENT: Normocephalic, atraumatic Neck: supple, no JVD Heart: S1 and S2 reg, no murmurs, rubs or gallop Lungs: Clear, no crackles, no wheeze Abd: soft, non tender, non distended, normal BS Ext: No edema, no clubbing, no cyanosis, Neuro: Awake,alert, oriented x3, non focal - Constitutional Vitals: Temp Pulse Resp BP Pulse Ox 97.9 F 83 18 107/70 99 08/30/18 11:46 08/30/18 11:46 08/30/18 11:46 08/30/18 11:46 08/30/18 11:46 Results - Labs CBC & Chem 7: 08/30/18 11:07 08/30/18 11:07 Labs: Laboratory Last Values WBC 8.3 K/mm3 (4.5-11.0) 08/30/18 11:07 RBC 4.10 M/mm3 (3.65-5.03) 08/30/18 11:07 Hgb 13.3 gm/dl (10.1-14.3) 08/30/18 11:07 Hct 39.1 % (30.3-42.9) 08/30/18 11:07 MCV 95 fl (79-97) 08/30/18 11:07 MCH 33 pg (28-32) H 08/30/18 11:07 MCHC 34 % (30-34) 08/30/18 11:07 RDW 12.4 % (13.2-15.2) L 08/30/18 11:07 Plt Count 275 K/mm3 (140-440) 08/30/18 11:07 Lymph % (Auto) 18.6 % (13.4-35.0) 08/30/18 11:07 [place] % (Auto) 4.1 % (0.0-7.3) 08/30/18 11:07 Eos % (Auto) 1.2 % (0.0-4.3) 08/30/18 11:07 Baso % (Auto) 0.6 % (0.0-1.8) 08/30/18 11:07 Lymph # 1.5 K/mm3 (1.2-5.4) 08/30/18 11:07 [place] # 0.3 K/mm3 (0.0-0.8) 08/30/18 11:07 Eos # 0.1 K/mm3 (0.0-0.4) 08/30/18 11:07 Baso # 0.1 K/mm3 (0.0-0.1) 08/30/18 11:07 Seg Neutrophils % 75.5 % (40.0-70.0) H 08/30/18 11:07 Seg Neutrophils # 6.3 K/mm3 (1.8-7.7) 08/30/18 11:07 Sodium 138 mmol/L (137-145) 08/30/18 11:07 Potassium 4.0 mmol/L (3.6-5.0) 08/30/18 11:07 Chloride 104.5 mmol/L (98-107) 08/30/18 11:07 Carbon Dioxide 22 mmol/L (22-30) 08/30/18 11:07 16 mmol/L 08/30/18 11:07 BUN 8 mg/dL (7-17) 08/30/18 11:07 0.8 mg/dL (0.7-1.2) 08/30/18 11:07 Estimated GFR > 60 ml/min 08/30/18 11:07 10 % 08/30/18 11:07 Glucose 85 mg/dL (65-100) 08/30/18 11:07 Calcium 9.2 mg/dL (8.4-10.2) 08/30/18 11:07 Phosphorus 3.30 mg/dL (2.5-4.5) 08/30/18 11:07 Magnesium 1.80 mg/dL (1.7-2.3) 08/30/18 11:07 1.00 mg/dL (0.1-1.2) 08/30/18 11:07 AST 104 units/L (5-40) H 08/30/18 11:07 ALT 350 units/L (7-56) H 08/30/18 11:07 115 units/L (35-129) 08/30/18 11:07 7.1 g/dL (6.3-8.2) 08/30/18 11:07 4.0 g/dL (3.9-5) 08/30/18 11:07 1.3 % 08/30/18 11:07 36 units/L (13-60) 08/29/18 00:50 HCG, Qual Negative (Negative) 08/29/18 00:50 Yellow (Yellow) 08/29/18 21:47 Clear (Clear) 08/29/18 21:47 6.0 (5.0-7.0) 08/29/18 21:47 Ur Specific Mcgrann 1.010 (1.003-1.030) 08/29/18 21:47 <15 mg/dl mg/dL (Negative) 08/29/18 21:47 Neg mg/dL (Negative) 08/29/18 21:47 Neg mg/dL (Negative) 08/29/18 21:47 Lg (Negative) 08/29/18 21:47 Neg (Negative) 08/29/18 21:47 Neg (Negative) 08/29/18 21:47 < 2.0 mg/dL (<2.0) 08/29/18 21:47 Ur Leukocyte Esterase Tr (Negative) 08/29/18 21:47 4.0 /HPF (0.0-6.0) 08/29/18 21:47 75.0 /HPF (0.0-6.0) 08/29/18 21:47 U Epithel Cells (Auto) 2.0 /HPF (0-13.0) 08/29/18 21:47 Active Medications - Current Medications Current Medications: Generic Name Dose Route Start Last Admin Trade Name Freq PRN Reason Stop Dose Admin Acetaminophen 650 mg 08/29/18 05:11 Tylenol PO Q4H PRN Pain MILD(1-3)/Fever >100.5/BUSTAMANTE Diphenhydramine HCl 25 mg 08/29/18 06:40 08/29/18 06:54 Benadryl IV 25 mg Q6H PRN Administration Itching Heparin Sodium (Porcine) 5,000 unit 08/29/18 10:00 08/29/18 21:40 Heparin SUB-Q 5,000 unit Q12HR HORTENCIA Administration Hydromorphone HCl 0.5 mg 08/29/18 05:13 Dilaudid IV 08/30/18 23:59 Q3H PRN Pain , Severe (7-10) Sodium Chloride 1,000 mls @ 100 mls/hr 08/29/18 06:00 08/30/18 05:19 Nacl 0.9% 1000 Ml IV 100 mls/hr DIRECT HORTENCIA Administration Levofloxacin/Dextrose 500 mg in 100 mls @ 100 mls/hr 08/30/18 06:00 08/30/18 05:06 Levaquin 500mg/100ml IV 100 mls/hr Q24H HORTENCIA Administration Protocol Metronidazole 500 mg in 100 mls @ 100 mls/hr 08/29/18 14:00 08/30/18 06:05 Flagyl 500 Mg/100 Ml IV 100 mls/hr Q8HR HORTENCIA Administration Protocol Morphine Sulfate 2 mg 08/29/18 05:11 08/30/18 05:19 Morphine IV 08/30/18 23:59 2 mg Q4H PRN Administration Pain, Moderate (4-6) Ondansetron HCl 4 mg 08/29/18 05:11 Zofran IV Q8H PRN Nausea And Vomiting Sodium Chloride 10 ml 08/29/18 10:00 08/29/18 21:41 Sodium Chloride Flush Syringe 10 Ml IV 10 ml BID HORTENCIA Administration Sodium Chloride 10 ml 08/29/18 05:11 Sodium Chloride Flush Syringe 10 Ml IV PRN PRN LINE FLUSH
--- NOTE | 2018-08-30 12:12 | Magnetic Resonance Report ---
MR abdomen MRCP History: Cholelithiasis Technique: Multisequence, multiplanar MRI. Thin and thick slab MRCP. Radial MRCP images. Findings: Ultrasound right upper quadrant performed 08/29/18 was reviewed. There is significant breathing motion artifact throughout this exam. The MRCP images again demonstrate multiple small gallstones within the gallbladder measuring less than 5 mm. The common bile duct is dilated up to 1 cm in diameter. There appear to be a few small stones in the proximal common bile duct measuring up to 3 mm which is best demonstrated on axial T2 fat sat image 15. There is question of a stone at the ampulla as well measuring 4-5 mm. The pancreatic duct is normal. Signal characteristics of the liver, pancreas, spleen, kidneys, adrenal glands and visualized bowel loops are within normal limits. The aorta is normal caliber. Normal bone marrow signal in the visualized bony structures. No ascites, adenopathy or inflammatory changes. Impression: Cholelithiasis. No evidence for acute cholecystitis. Choledocholithiasis. See above.
[2018-08-30] MEDS: HEPARIN SUB-Q SCH ×2 (12:49→21:54)
[2018-08-30] MEDS: SODIUM CHLORIDE FLUSH SYRINGE 10 ML IV SCH (21:54)
[2018-08-31] MEDS: SODIUM CHLORIDE FLUSH SYRINGE 10 ML IV SCH ×3 (01:15→23:52)
[2018-08-31] MEDS: NACL 0.9% 1000 ML 1,000 ML IV SCH ×3 (02:43→18:43)
[2018-08-31] MEDS: LEVAQUIN 500MG/100ML 500 MG/100 ML BAG IV SCH (06:07)
[2018-08-31] MEDS: FLAGYL 500 MG/100 ML 500 MG/100 ML BAG IV SCH ×3 (06:07→21:32)
[2018-08-31 06:13] LABS: Hematocrit 36.9 % (30.3-42.9); Hemoglobin 12.7 gm/dl (10.1-14.3); Mean Corpuscular HGB Conc 35 % (30-34); Mean Corpuscular Volume 95 fl (79-97); Platelet Count 265 K/mm3 (140-440); Red Blood Count 3.89 M/mm3 (3.65-5.03); Red Cell Distribution Width 12.2 % (13.2-15.2)
[2018-08-31 06:33] LABS: Alanine Aminotransferase 213 units/L (7-56); Albumin 3.6 g/dL (3.9-5); BUN/Creatinine Ratio 18; Blood Urea Nitrogen 14 mg/dL (7-17); Calcium 8.8 mg/dL (8.4-10.2); Hemolysis Index 3
--- NOTE | 2018-08-31 08:31 | Gastroenterology Consultation ---
History of Present Illness - Reason for Consult Consult date: 08/31/18 CBD stones Requesting physician: IVAN RADER - History of Present Illness Patient is a 28 yo female who presents with recurrent abdominal pain and nausea/vomiting. patient has been having intermittent episodes of abd pain with n/v since her last year. symptoms typically self-resolve, but recently had worsening of pain (throughout upper abdomen) with associated n/v; pt found to have elevated liver enzymes on admission; MRCP showed CBD stones. No fevers/chills or jaundice. Improved symptoms since admission. Past History Past Medical History: other (diagnosed with cholelithiasis in Dec 2017) Past Surgical History: No surgical history Social history: lives with family Family history: no significant family history Medications and Allergies Allergies Allergy/AdvReac Type Severity Reaction Status Date / Time No Known Allergies Allergy Verified 07/13/13 08:58 Home Medications Medication Instructions Recorded Confirmed Last Taken Type Vits96/Iron Fum/Folic 1 each PO DAILY 12/17/17 08/29/18 06/07/18 09:00 History [ Tablet] Active Meds: Active Medications Acetaminophen (Tylenol) 650 mg PO Q4H PRN PRN Reason: Pain MILD(1-3)/Fever >100.5/BUSTAMANTE Diphenhydramine HCl (Benadryl) 25 mg IV Q6H PRN PRN Reason: Itching Last Admin: 08/29/18 06:54 Dose: 25 mg Documented by: Heparin Sodium (Porcine) (Heparin) 5,000 unit SUB-Q Q12HR HORTENCIA Last Admin: 08/30/18 21:54 Dose: Not Given Documented by: Sodium Chloride (Nacl 0.9% 1000 Ml) 1,000 mls @ 100 mls/hr IV DIRECT HORTENCIA Last Admin: 08/31/18 02:43 Dose: 100 mls/hr Documented by: Levofloxacin/Dextrose (Levaquin 500mg/100ml) 500 mg in 100 mls @ 100 mls/hr IV Q24H HORTENCIA; Protocol Last Admin: 08/31/18 06:07 Dose: 100 mls/hr Documented by: Metronidazole (Flagyl 500 Mg/100 Ml) 500 mg in 100 mls @ 100 mls/hr IV Q8HR HORTENCIA; Protocol Last Admin: 08/31/18 06:07 Dose: 100 mls/hr Documented by: Ondansetron HCl (Zofran) 4 mg IV Q8H PRN PRN Reason: Nausea And Vomiting Sodium Chloride (Sodium Chloride Flush Syringe 10 Ml) 10 ml IV BID HORTENCIA Last Admin: 08/31/18 01:15 Dose: 10 ml Documented by: Sodium Chloride (Sodium Chloride Flush Syringe 10 Ml) 10 ml IV PRN PRN PRN Reason: LINE FLUSH Reviewed/updated patient's home and current medications Review of Systems - Review of Systems All systems: negative (per HPI) Exam - Constitutional Vital Signs: Temp Pulse Resp BP Pulse Ox 97.9 F 65 18 101/49 100 08/31/18 05:49 08/31/18 05:49 08/31/18 05:49 08/31/18 05:49 08/31/18 05:49 General appearance: no acute distress - EENT Eyes: PERRL, EOM intact - Neck Neck: supple, normal ROM - Respiratory Respiratory effort: normal Respiratory: bilateral: CTA - Cardiovascular Rhythm: regular Heart Sounds: Present: S1 & S2 - Gastrointestinal General gastrointestinal: Present: soft, non-tender, non-distended, normal bowel sounds - Integumentary Integumentary: Present: clear, warm - Neurologic Neurological: alert and oriented x3 - Psychiatric Psychiatric: appropriate mood/affect - Labs CBC & Chem 7: 08/31/18 05:45 08/31/18 05:45 Lab Results: Laboratory Results - last 24 hr 08/30/18 08/30/18 08/31/18 11:07 11:07 05:45 WBC 8.3 5.6 RBC 4.10 3.89 Hgb 13.3 12.7 Hct 39.1 36.9 MCV 95 95 MCH 33 H 33 H MCHC 34 35 H RDW 12.4 L 12.2 L Plt Count 275 265 Lymph % (Auto) 18.6 [place] % (Auto) 4.1 Eos % (Auto) 1.2 Baso % (Auto) 0.6 Lymph # 1.5 [place] # 0.3 Eos # 0.1 Baso # 0.1 Seg Neutrophils % 75.5 H Seg Neutrophils # 6.3 Sodium 138 Potassium 4.0 Chloride 104.5 Carbon Dioxide 22 Anion Gap 16 BUN 8 Creatinine 0.8 Estimated GFR > 60 BUN/Creatinine Ratio 10 Glucose 85 Calcium 9.2 Phosphorus 3.30 Magnesium 1.80 Total Bilirubin 1.00 AST 104 H ALT 350 H Alkaline Phosphatase 115 Total Protein 7.1 Albumin 4.0 Albumin/Globulin Ratio 1.3 08/31/18 05:45 WBC RBC Hgb Hct MCV MCH MCHC RDW Plt Count Lymph % (Auto) [place] % (Auto) Eos % (Auto) Baso % (Auto) Lymph # [place] # Eos # Baso # Seg Neutrophils % Seg Neutrophils # Sodium 139 Potassium 4.0 Chloride 107.8 H Carbon Dioxide 19 L Anion Gap 16 BUN 14 Creatinine 0.8 Estimated GFR > 60 BUN/Creatinine Ratio 18 Glucose 88 Calcium 8.8 Phosphorus Magnesium Total Bilirubin 0.60 AST 41 H ALT 213 H Alkaline Phosphatase 94 Total Protein 6.3 Albumin 3.6 L Albumin/Globulin Ratio 1.3 - Imaging MRI: report reviewed Assessment and Plan 1. Choledocolithiasis 2. Abnormal liver enzymes -no signs of cholangitis; improved symptoms since admission. will plan for ERCP hopefully today based on schedule availability. keep NPO.
[2018-08-31] MEDS ORDERED: NACL 0.9% 100 ML ONE ×2 (09:43→12:51)
[2018-08-31] MEDS ORDERED: WATER FOR IRRIG STERILE IR ONE (09:44)
--- NOTE | 2018-08-31 10:38 | Anesthesia Consultation ---
Anesthesia Consult and Med Hx Date of service: 08/31/18 - Airway Anesthetic Teeth Evaluation: Good Mallampati Class: Class II Intubation Access Assessment: Probably Good - Pre-Operative Health Status ASA Pre-Surgery Classification: ASA2 Proposed Anesthetic Plan: MAC - Pulmonary Hx Asthma: No COPD: No Hx Pneumonia: No - Cardiovascular System Hx Hypertension: No - Central Nervous System Hx Seizures: No Hx Psychiatric Problems: No - Endocrine Hx Renal Disease: No Hx End Stage Renal Disease: No Hx Liver Disease: Yes (gallstones) Hx Hypothyroidism: No Hx Hyperthyroidism: No - Hematic Hx Anemia: No Hx Sickle Cell Disease: No - Other Systems Hx Alcohol Use: No
--- NOTE | 2018-08-31 10:38 | Anesthesia Day of Surgery ---
Anesthesia Day of Surgery - Day of Surgery Patient Examined: Yes Patient H&P Reviewed: Yes Patient is NPO: Yes
[2018-08-31] MEDS ORDERED: VERSED ONE (11:31)
[2018-08-31] MEDS ORDERED: DILAUDID ONE (11:31)
[2018-08-31] MEDS ORDERED: DIPRIVAN 10 MG/ML IV ONE ×4 (11:31→12:54)
[2018-08-31] MEDS ORDERED: NACL 0.9% 1000 ML 1,000 ML ONE (13:26)
[2018-08-31] MEDS ORDERED: XYLOCAINE MPF 2% ONE (13:26)
--- NOTE | 2018-08-31 13:30 | Post Operative Note ---
Pre-op diagnosis: CBD stones Post-op diagnosis: other (Same, possible perforation) Findings: 1. Normal appearing ampulla 2. Pancreatic Duct cannulated with Dreamtome/0.035 guidewire - Small precut made 3. CBD cannulated with Dreamtome/0.035 guidewire - Sphincterotomy extended; mild post-procedure bleeding (< 25ml) but no active bleeding at end of procedure - 9mm balloon swept through CBD x 3 with multiple small black stones removed 4. At end of case, fluid collection in RUQ that was not definitiley the gallbladder noted; concern for peritoneal or retroperitoneal perforation - We placed a [id number] CBD stent in case there was common duct injury with good flow of bile Procedure: ERCP with sphincterotomy, balloon sweep of CBD, and biliary stent placement Anesthesia: MAC Surgeon: NEETA SAWANT Estimated blood loss: minimal Pathology: none Specimen disposition: other (N/A) Condition: stable Disposition: floor (Recs: 1. Continue IV fluids, IV abx, and NPO status. 2. CT scan to assess fluid collection and whether free air present. 3. Discussed with surgery at time of case options if perforation present (will probably need transfer to tertiary care center). 4. Avoid all NSAIDs and protonix QD given procedural bleeding. 5. Further recs after CT scan results noted.)
--- NOTE | 2018-08-31 14:53 | Cat Scan Report ---
CT ABDOMEN PELVIS WITHOUT CONTRAST: HISTORY: Status post ERCP, rule out bowel injury. COMPARISON: none. TECHNIQUE: Helical CT in 1.25mm intervals without IV contrast. Sagittal and coronal reconstructions. FINDINGS: Recent ERCP was performed by gastroenterology. There was concern for duodenal or biliary perforation during the procedure. Followup CAT scan demonstrates a small amount of retroperitoneal air surrounding the descending duodenum but no evidence for leakage of the contrast agent. A small duodenal perforation is suspected although it is not clearly seen on CT. The common bile duct stent is placed. Cholelithiasis is again noted. The remaining bowel loops are gas filled but unremarkable. The liver, pancreas, spleen, kidneys, adrenal glands, bladder, uterus and adnexa are unremarkable. IMPRESSION: There is a small amount of retroperitoneal air surrounding the duodenum which is consistent with a small perforation. There is however no leakage of the contrast agent used during the ERCP. These findings were discussed with Dr. Dominique at 1440 hrs.
[2018-08-31] MEDS: PROTONIX IV SCH (14:55)
--- NOTE | 2018-08-31 15:09 | Fluoroscopy Report ---
FLUOROSCOPY ERCP BILIARY PANCREATIC DUCTS History: Cholelithiasis. Findings: Fluoroscopy was provided by radiology during ERCP by gastroenterology. 18 fluoroscopic images of the right upper quadrant are presented. The images demonstrate balloon sweep of the common bile duct to remove stones. The common bile duct stent was placed. There is no evidence for extravasation of contrast on the given images. Impression: Common bile duct stone removal. Common bile duct stent placement.
[2018-08-31] MEDS ORDERED: CHLORASEPTIC MM PRN (15:12)
--- NOTE | 2018-08-31 16:06 | Operative Report ---
ENDOSCOPY DOCUMENT PROCEDURE PERFORMED: Endoscopic retrograde cholangiopancreatography with biliary sphincterotomy, balloon sweeping of the common bile duct, and biliary stent placement. PREOPERATIVE DIAGNOSIS: Common bile duct stones. POSTOPERATIVE DIAGNOSES: Common bile duct stones, also possible perforation of bowel or bile duct. ENDOSCOPIST: John Hightower MD INSTRUMENT: Olympus video endoscope. MEDICATIONS: MAC anesthesia by [facility]. COMPLICATIONS: At the end of the procedure, there was noted to be a fluid collection in the right upper quadrant that was not definitively the gallbladder and I am concerned about a perforation of either the common bile duct or the mucosa of the duodenum; see notes below about recommendations for post-procedural care. ESTIMATED BLOOD LOSS: Approximately 25 mL of blood. IMPLANTS: A 10-Congolese x 5 cm biliary dual-flanged stent was placed in the common bile duct at the end of the procedure with good flow of bile. ASSISTANTS: None. CONDITION AT COMPLETION: Stable. TECHNIQUE: The patient was informed of the risks and benefits of the procedure. She signed the informed consent to proceed. She was placed in the prone position. The above sedative medications were given. Her vital signs remained stable throughout the procedure. The instrument was advanced from the mouth to the ampulla under direct visualization. At that point, the bowel was insufflated. The ampulla was normal in shape and size. We originally cannulated the pancreatic duct using a Dreamtome and a 0.035 guidewire; a small precut sphincterotomy was made. The Dreamtome was then repositioned and using a Dreamtome and a 0.035 guidewire, we advanced into the common bile duct. A cholangiogram was obtained and there was evidence of small filling defects, noted consistent with common bile duct stones. The sphincterotomy was extended to medium size and a small vessel began bleeding; however, with mild extension of the sphincterotomy, the bleeding source was controlled and no extra maneuvers were required. We then swept a 9 mm balloon, 3 times through the common bile duct with multiple, 5-7, small black gallstones were removed. After removing the balloon, we noted a contrast collection in the right upper quadrant. We could not definitively state that this was the gallbladder filling, although the cystic duct was patent during the exam. Due to the large sphincterotomy complicated by both the precut as well as procedural bleeding, we were concerned about possible common bile duct injury/perforation or retroperitoneal preparation through the mucosa of the duodenum. We elected to place a 10-Congolese x 5 cm common bile duct stent in case there was a common bile duct injury and there was excellent flow of bile afterwards. It should be noted that the patient's vital signs remained stable throughout the procedure and there was no sign of an acute abdomen. Due to the concern about perforation, we consulted intra-procedure with the general surgeon on the patient's case, Dr. Dominique, and discussed possible options if there was either a common bile duct injury and/or retroperitoneal/duodenal injury, the procedure was then terminated. FINDINGS: 1. Normal-appearing ampulla. 2. The pancreatic duct was cannulated using a Dreamtome/0.035 guidewire. A. Small precut sphincterotomy was made. 3. The common bile duct was cannulated after repositioning with a Dreamtome/0.035 guidewire. A. A sphincterotomy was extended to medium size; there was mild intra-procedural bleeding (not exceeding 25 mL), but there was no active bleeding at the end of the procedure; and the bleeding stopped using cautery from the sphincterotomy. B. A 9 mm balloon was swept through the common bile duct 3 times with multiple small black gallstones removed, none larger than 4 mm. C. At the end of the procedure, there was a collection of contrast in the right upper quadrant. There was not definitively the gallbladder and there was concern about either common bile duct injury or retroperitoneal perforation from a duodenal defect. D. We placed a 10-Congolese x 5 cm common bile duct stent in case there was a common duct injury with good flow of bile at the end of the procedure. 4. There was some filling of the cystic duct noted on one of the cholangiogram. RECOMMENDATIONS: 1. We will continue intravenous antibiotics, intravenous fluids and nothing by mouth status. 2. We will obtain a CT scan to assess for fluid collection and whether free air is present. 3. We discussed with Surgery at the time of the case options if a perforation is present either through the common bile duct injury or through a mucosal defect from the patient's complicated sphincterotomy; if so, she will be transferred to a tertiary care center. 4. Avoid all nonsteroidal anti-inflammatory drugs and give Protonix daily given the procedural bleeding. 5. Further recommendations after CT scan results noted. JOB# [id number] LAKHWINDER/NTS
--- NOTE | 2018-08-31 16:18 | Progress Note ---
Assessment and Plan 28 yo F with cholelithiasis, choledocolithiasis s/p ERCP with sphincterotomy, stone extraction, and CBD stent placement Ct scan A/P - + small amount of retroperitoneal air near duodenum. No leakage of contrast Plan; 1. 16F NGT inserted by me into R nare - kept to LIWS 2. obtain KUB 3. IVF 4. NPO 5. will obtain UGI series in the next 3-4 days to evaluate for contrast extravasation. 6. prn pain control 7. Will not perform cholecystectomy during this admission. Will be performed as an outpatient. Thank you, please call with questions. Subjective Date of service: 08/31/18 Narrative: Pt seen and examined. s/p ERCP. c/o some abdominal discomfort. No n/v. Called in by Dr. Hightower during ERCP. He felt that there could have mucosal injury to the duodenum at the ampulla. A CBD stent was placed with good outflow of bile. There was possible extravasation of contrast vs gallbladder filling with contrast. We discussed the case and decided to perform a CT scan of the abdomen/pelvis to r/o perforation. Objective Vital Signs - 12hr 08/31/18 08/31/18 08/31/18 04:34 05:49 08:50 Temperature 97.9 F 97.9 F 98.1 F Pulse Rate 67 65 74 Respiratory 16 18 18 Rate Blood Pressure 101/49 Blood Pressure 90/50 87/51 [Left] O2 Sat by Pulse 98 100 93 Oximetry 08/31/18 08/31/18 08/31/18 10:29 10:33 13:26 Temperature 98.8 F 98.8 F 98.4 F Pulse Rate 69 69 92 H Respiratory 18 18 10 L Rate Blood Pressure 98/68 98/68 116/77 Blood Pressure [Left] O2 Sat by Pulse 100 100 99 Oximetry 08/31/18 08/31/18 08/31/18 13:41 13:46 13:52 Temperature Pulse Rate 76 69 70 Respiratory 20 16 17 Rate Blood Pressure 118/78 116/76 111/75 Blood Pressure [Left] O2 Sat by Pulse 100 99 99 Oximetry 08/31/18 08/31/18 14:00 14:45 Temperature 97.5 F L Pulse Rate 67 65 Respiratory 16 18 Rate Blood Pressure 112/74 Blood Pressure 110/67 [Left] O2 Sat by Pulse 100 100 Oximetry - General physical appearance Narrative Exam: Gen: AAOx3. mild distress due to abdominal pain CV: s1, S2+ resp; even and unlabored Abd; soft, moderately distended, mild diffuse TTP. no r/r/g Ext: no c/c/e - Labs 08/31/18 05:45 08/31/18 05:45 Diabetes panel 08/31/18 Range/Units 05:45 Sodium 139 (137-145) mmol/L Potassium 4.0 (3.6-5.0) mmol/L Chloride 107.8 H (98-107) mmol/L Carbon Dioxide 19 L (22-30) mmol/L BUN 14 (7-17) mg/dL Creatinine 0.8 (0.7-1.2) mg/dL Glucose 88 (65-100) mg/dL Calcium 8.8 (8.4-10.2) mg/dL AST 41 H (5-40) units/L ALT 213 H (7-56) units/L Alkaline Phosphatase 94 (35-129) units/L Total Protein 6.3 (6.3-8.2) g/dL Albumin 3.6 L (3.9-5) g/dL Calcium panel 08/31/18 Range/Units 05:45 Calcium 8.8 (8.4-10.2) mg/dL Albumin 3.6 L (3.9-5) g/dL Pituitary panel 08/31/18 Range/Units 05:45 Sodium 139 (137-145) mmol/L Potassium 4.0 (3.6-5.0) mmol/L Chloride 107.8 H (98-107) mmol/L Carbon Dioxide 19 L (22-30) mmol/L BUN 14 (7-17) mg/dL Creatinine 0.8 (0.7-1.2) mg/dL Glucose 88 (65-100) mg/dL Calcium 8.8 (8.4-10.2) mg/dL Adrenal panel 08/31/18 Range/Units 05:45 Sodium 139 (137-145) mmol/L Potassium 4.0 (3.6-5.0) mmol/L Chloride 107.8 H (98-107) mmol/L Carbon Dioxide 19 L (22-30) mmol/L BUN 14 (7-17) mg/dL Creatinine 0.8 (0.7-1.2) mg/dL Glucose 88 (65-100) mg/dL Calcium 8.8 (8.4-10.2) mg/dL Total Bilirubin 0.60 (0.1-1.2) mg/dL AST 41 H (5-40) units/L ALT 213 H (7-56) units/L Alkaline Phosphatase 94 (35-129) units/L Total Protein 6.3 (6.3-8.2) g/dL Albumin 3.6 L (3.9-5) g/dL
--- NOTE | 2018-08-31 16:58 | XRay Report ---
PROCEDURE: XR ABDOMEN 1V AP TECHNIQUE: Abdominal radiograph, single view. HISTORY: NGT placement COMPARISONS: None currently available. FINDINGS: Enteric tube tip and sidehole are present within the proximal stomach. Bowel gas appearance is nonspecific and non-distended. There is no pneumoperitoneum. There is no air fluid level. There is no obstructive pattern. [id number]-[id number] stool. No suspicious calcifications overlying the renal shadows. Degenerative changes are present in the spine and hips. Biliary stent noted. Contrast or sludge within the gallbladder. IMPRESSION: * Nonspecific nonobstructive bowel gas pattern. * Contrast or sludge within the gallbladder. This document is electronically signed by Jc Atkins MD., Aug 31 2018 04:56:53 PM ET
--- NOTE | 2018-08-31 17:09 | Event Note ---
Date: 08/31/[address] scan results were reviewed and discussed with Surgery. Patient appears to have a small retroperitoneal perforation (but may be contiguous with a CBD perforation). This should heal without surgical management barring complications such as infection, worsening perforation, etc. The biliary stent will need to remain in place for 2-4 weeks, and CCY surgery delayed for at least 48 hours (pre-operative UGI to assess for worsening perforation). Current abx regimen acceptable, but will broaden coverage pending clinical course. Must remain NPO for now, but if no N/V overnight, and KUB tomorrow is OK, could remove NG tube tomorrow. Will continue to follow.
[2018-08-31] MEDS ORDERED: MORPHINE IV PRN (18:40)
--- NOTE | 2018-08-31 19:00 | Progress Note ---
Assessment and Plan Assessment and plan: 28-year-old female diagnosed with cholelithiasis in December 2017 at 15 weeks presents to [facility] ED with complaints of severe right upper quadrant and left upper quadrant abdominal pain. Patient states that sometime last night she began to feel nauseous and had emesis 1, followed by severe right upper quadrant pain which radiated to her back and right upper extremity. She describes the pain as sharp and constant and rates it 10/10. Her pain is relieved by pain medicine. Acute cholelithiasis, choledocholithiasis On Levaquin and flagyl GI and surg following Patient is status post ERCP with sphincterectomy stone extraction and CBD placement today. This was done and following that was noted to have a small amount of free intraperitoneal air in the duodenum no leakage of contrast was noted. She was kept nothing by mouth. Upper GI series is planned for the next 3-4 days to evaluate for contrast service station dilated common bile duct As noted above leukocytosis due to cholelithiasis Hypokalemia, resolved Full code status DVT and GI prophylaxis History Interval history: Patients and examined resting comfortably. Patient is for ERCP today. Hospitalist Physical - Physical exam Narrative exam: Gen: Not in acute distress, Lying in bed HEENT: Normocephalic, atraumatic Neck: supple, no JVD Heart: S1 and S2 reg, no murmurs, rubs or gallop Lungs: Clear, no crackles, no wheeze Abd: soft, tender, non distended, normal BS Ext: No edema, no clubbing, no cyanosis, Neuro: Awake,alert, oriented x3, non focal - Constitutional Vitals: Temp Pulse Resp BP Pulse Ox 97.5 F L 65 20 110/67 100 08/31/18 14:45 08/31/18 14:45 08/31/18 16:47 08/31/18 14:45 08/31/18 14:45 Results - Labs CBC & Chem 7: 09/01/18 04:14 09/01/18 04:14 Labs: Laboratory Last Values WBC 5.6 K/mm3 (4.5-11.0) 08/31/18 05:45 RBC 3.89 M/mm3 (3.65-5.03) 08/31/18 05:45 Hgb 12.7 gm/dl (10.1-14.3) 08/31/18 05:45 Hct 36.9 % (30.3-42.9) 08/31/18 05:45 MCV 95 fl (79-97) 08/31/18 05:45 MCH 33 pg (28-32) H 08/31/18 05:45 MCHC 35 % (30-34) H 08/31/18 05:45 RDW 12.2 % (13.2-15.2) L 08/31/18 05:45 Plt Count 265 K/mm3 (140-440) 08/31/18 05:45 Lymph % (Auto) 18.6 % (13.4-35.0) 08/30/18 11:07 [place] % (Auto) 4.1 % (0.0-7.3) 08/30/18 11:07 Eos % (Auto) 1.2 % (0.0-4.3) 08/30/18 11:07 Baso % (Auto) 0.6 % (0.0-1.8) 08/30/18 11:07 Lymph # 1.5 K/mm3 (1.2-5.4) 08/30/18 11:07 [place] # 0.3 K/mm3 (0.0-0.8) 08/30/18 11:07 Eos # 0.1 K/mm3 (0.0-0.4) 08/30/18 11:07 Baso # 0.1 K/mm3 (0.0-0.1) 08/30/18 11:07 Seg Neutrophils % 75.5 % (40.0-70.0) H 08/30/18 11:07 Seg Neutrophils # 6.3 K/mm3 (1.8-7.7) 08/30/18 11:07 Sodium 139 mmol/L (137-145) 08/31/18 05:45 Potassium 4.0 mmol/L (3.6-5.0) 08/31/18 05:45 Chloride 107.8 mmol/L (98-107) H 08/31/18 05:45 Carbon Dioxide 19 mmol/L (22-30) L 08/31/18 05:45 16 mmol/L 08/31/18 05:45 BUN 14 mg/dL (7-17) 08/31/18 05:45 0.8 mg/dL (0.7-1.2) 08/31/18 05:45 Estimated GFR > 60 ml/min 08/31/18 05:45 18 % 08/31/18 05:45 Glucose 88 mg/dL (65-100) 08/31/18 05:45 Calcium 8.8 mg/dL (8.4-10.2) 08/31/18 05:45 Phosphorus 3.30 mg/dL (2.5-4.5) 08/30/18 11:07 Magnesium 1.80 mg/dL (1.7-2.3) 08/30/18 11:07 0.60 mg/dL (0.1-1.2) 08/31/18 05:45 AST 41 units/L (5-40) H 08/31/18 05:45 ALT 213 units/L (7-56) H 08/31/18 05:45 94 units/L (35-129) 08/31/18 05:45 6.3 g/dL (6.3-8.2) 08/31/18 05:45 3.6 g/dL (3.9-5) L 08/31/18 05:45 1.3 % 08/31/18 05:45 36 units/L (13-60) 08/29/18 00:50 HCG, Qual Negative (Negative) 08/29/18 00:50 Yellow (Yellow) 08/29/18 21:47 Clear (Clear) 08/29/18 21:47 6.0 (5.0-7.0) 08/29/18 21:47 Ur Specific [place] 1.010 (1.003-1.030) 08/29/18 21:47 <15 mg/dl mg/dL (Negative) 08/29/18 21:47 Neg mg/dL (Negative) 08/29/18 21:47 Neg mg/dL (Negative) 08/29/18 21:47 Lg (Negative) 08/29/18 21:47 Neg (Negative) 08/29/18 21:47 Neg (Negative) 08/29/18 21:47 < 2.0 mg/dL (<2.0) 08/29/18 21:47 Ur Leukocyte Esterase Tr (Negative) 08/29/18 21:47 4.0 /HPF (0.0-6.0) 08/29/18 21:47 75.0 /HPF (0.0-6.0) 08/29/18 21:47 U Epithel Cells (Auto) 2.0 /HPF (0-13.0) 08/29/18 21:47 Active Medications - Current Medications Current Medications: Generic Name Dose Route Start Last Admin Trade Name Freq PRN Reason Stop Dose Admin Acetaminophen 650 mg 08/29/18 05:11 Tylenol PO Q4H PRN Pain MILD(1-3)/Fever >100.5/BUSTAMANTE Diphenhydramine HCl 25 mg 08/29/18 06:40 08/29/18 06:54 Benadryl IV 25 mg Q6H PRN Administration Itching Heparin Sodium (Porcine) 5,000 unit 08/29/18 10:00 08/30/18 21:54 Heparin SUB-Q Not Given Q12HR HORTENCIA Levofloxacin/Dextrose 500 mg in 100 mls @ 100 mls/hr 08/30/18 06:00 08/31/18 06:07 Levaquin 500mg/100ml IV 100 mls/hr Q24H HORTENCIA Administration Protocol Metronidazole 500 mg in 100 mls @ 100 mls/hr 08/29/18 14:00 08/31/18 14:55 Flagyl 500 Mg/100 Ml IV 100 mls/hr Q8HR HORTENCIA Administration Protocol Sodium Chloride 1,000 mls @ 50 mls/hr 08/31/18 10:00 08/31/18 18:43 Nacl 0.9% 1000 Ml IV 50 mls/hr DIRECT HORTENCIA Administration Morphine Sulfate 2 mg 08/31/18 18:40 Morphine IV Q4H PRN Pain, Moderate (4-6) Ondansetron HCl 4 mg 08/29/18 05:11 Zofran IV Q8H PRN Nausea And Vomiting Pantoprazole Sodium 40 mg 08/31/18 14:00 08/31/18 14:55 Protonix IV 40 mg QDAY HORTENCIA Administration Phenol 1 spray 08/31/18 15:12 08/31/18 18:37 Chloraseptic MM 1 spray PRN PRN Administration Sore Throat Sodium Chloride 10 ml 08/29/18 10:00 08/31/18 14:56 Sodium Chloride Flush Syringe 10 Ml IV 10 ml BID HORTENCIA Administration Sodium Chloride 10 ml 08/29/18 05:11 Sodium Chloride Flush Syringe 10 Ml IV PRN PRN LINE FLUSH
[2018-08-31] MEDS: HEPARIN SUB-Q SCH ×2 (20:10→21:32)
[2018-09-01 05:09] LABS: Basophils % (Auto) 0.5 % (0.0-1.8); Eosinophils % (Auto) 0.4 % (0.0-4.3); Hematocrit 35.7 % (30.3-42.9); Hemoglobin 12.3 gm/dl (10.1-14.3); Lymphocytes # (Auto) 1.9 K/mm3 (1.2-5.4); Lymphocytes % (Auto) 22.3 % (13.4-35.0); Mean Corpuscular HGB Conc 35 % (30-34); Mean Corpuscular Volume 95 fl (79-97); Monocytes # (Auto) 0.5 K/mm3 (0.0-0.8); Monocytes % (Auto) 6.1 % (0.0-7.3); Platelet Count 255 K/mm3 (140-440); Red Blood Count 3.77 M/mm3 (3.65-5.03); Red Cell Distribution Width 12.5 % (13.2-15.2)
[2018-09-01 05:31] LABS: Alanine Aminotransferase 154 units/L (7-56); Albumin 3.6 g/dL (3.9-5); BUN/Creatinine Ratio 15; Blood Urea Nitrogen 9 mg/dL (7-17); Calcium 9.3 mg/dL (8.4-10.2); Hemolysis Index 2
[2018-09-01] MEDS: FLAGYL 500 MG/100 ML 500 MG/100 ML BAG IV SCH ×3 (05:51→21:19)
[2018-09-01] MEDS: LEVAQUIN 500MG/100ML 500 MG/100 ML BAG IV SCH (05:53)
--- NOTE | 2018-09-01 08:00 | XRay Report ---
AP ABDOMEN: HISTORY: Bowel perforation, followup x-ray. Compared to 08/31/18. Contrast agent from recent ERCP has advanced into the proximal colon. There is residual contrast agent in a normal size gallbladder. Cholelithiasis is again noted. Biliary stent and nasogastric tube remain in the same position. The bowel gas pattern is within normal limits. No evidence for obstruction or large free air. IMPRESSION: Unremarkable abdomen.
[2018-09-01] MEDS ORDERED: D5W/0.45% NACL/KCL 20 MEQ 20 MEQ/1,000 ML BAG IV SCH (10:00)
[2018-09-01] MEDS: HEPARIN SUB-Q SCH ×2 (10:11→21:19)
[2018-09-01] MEDS: PROTONIX IV SCH (10:11)
[2018-09-01] MEDS: SODIUM CHLORIDE FLUSH SYRINGE 10 ML IV SCH ×2 (10:43→21:27)
[2018-09-01] MEDS: KCL 10MEQ/100ML 10 MEQ/100 ML BAG IV SCH ×2 (11:22→14:47)
--- NOTE | 2018-09-01 12:23 | Gastroenterology Progress Note ---
<VINAY MONTANA - Last Filed: 09/01/18 12:24> Assessment and Plan 1. Choledocolithiasis 2. Abnormal liver enzymes -afebrile -WBC WNL -LFTs trending down -s/p ERCP yesterday with sphincterotomy, stone extraction, and CBD stent eris cement with small retroperitoneal perforation s/p procedure seen on CT -surgery following -CCY on hold -clinically, patient reports abd pain is still present but slightly improved today. No N/V. -KUB this am unremarkable -Keep NPO with NGT in place for now (per surgery recommendations) -UGI series in am to evaluate for contrast extravasation -if UGI negative, hopefully will be able to remove NGT tomorrow and start on trial of clears if okay with surgery -continue to trend labs and supportive care -will follow Subjective Date of service: 09/01/18 Principal diagnosis: choledocolithiasis Interval history: No acute distress. Patient c/o NGT discomfort. Reports abd pain slightly improved. Objective - Constitutional Vitals: Temp Pulse Resp BP Pulse Ox 98.9 F 95 H 18 108/67 97 09/01/18 07:33 09/01/18 07:33 09/01/18 07:33 09/01/18 07:33 09/01/18 07:33 General appearance: no acute distress - EENT ENT: other (+NGT) - Respiratory Respiratory: bilateral: CTA (anterior) - Cardiovascular Rhythm: regular - Gastrointestinal General gastrointestinal: Present: soft, tender, non-distended, normal bowel sounds - Neurologic Neurological: alert and oriented x3 - Labs CBC & Chem 7: 09/01/18 04:14 09/01/18 04:14 Labs: Laboratory Results - last 24 hr 09/01/18 09/01/18 04:14 04:14 WBC 8.4 RBC 3.77 Hgb 12.3 Hct 35.7 MCV 95 MCH 33 H MCHC 35 H RDW 12.5 L Plt Count 255 Lymph % (Auto) 22.3 [place] % (Auto) 6.1 Eos % (Auto) 0.4 Baso % (Auto) 0.5 Lymph # 1.9 [place] # 0.5 Eos # 0.0 Baso # 0.0 Seg Neutrophils % 70.7 H Seg Neutrophils # 5.9 Sodium 144 Potassium 3.5 L Chloride 109.3 H Carbon Dioxide 22 Anion Gap 16 BUN 9 Creatinine 0.6 L Estimated GFR > 60 BUN/Creatinine Ratio 15 Glucose 79 Calcium 9.3 Total Bilirubin 0.80 AST 23 ALT 154 H Alkaline Phosphatase 87 Total Protein 6.2 L Albumin 3.6 L Albumin/Globulin Ratio 1.4 <TERRENCE MOLINA Bravo - Last Filed: 09/01/18 13:15> Assessment and Plan Pt seen and examined. Agree with note above Exam: Abd: soft, mild epigastric ttp, no r/g, + bs UGI series in the AM as above. Objective - Constitutional Vitals: Temp Pulse Resp BP Pulse Ox 98.9 F 95 H 18 108/67 97 09/01/18 07:33 09/01/18 07:33 09/01/18 07:33 09/01/18 07:33 09/01/18 07:33 - Labs CBC & Chem 7: 09/01/18 04:14 09/01/18 04:14 Labs: Laboratory Results - last 24 hr 09/01/18 09/01/18 04:14 04:14 WBC 8.4 RBC 3.77 Hgb 12.3 Hct 35.7 MCV 95 MCH 33 H MCHC 35 H RDW 12.5 L Plt Count 255 Lymph % (Auto) 22.3 [place] % (Auto) 6.1 Eos % (Auto) 0.4 Baso % (Auto) 0.5 Lymph # 1.9 [place] # 0.5 Eos # 0.0 Baso # 0.0 Seg Neutrophils % 70.7 H Seg Neutrophils # 5.9 Sodium 144 Potassium 3.5 L Chloride 109.3 H Carbon Dioxide 22 Anion Gap 16 BUN 9 Creatinine 0.6 L Estimated GFR > 60 BUN/Creatinine Ratio 15 Glucose 79 Calcium 9.3 Total Bilirubin 0.80 AST 23 ALT 154 H Alkaline Phosphatase 87 Total Protein 6.2 L Albumin 3.6 L Albumin/Globulin Ratio 1.4
[2018-09-01] MEDS ORDERED: D5W/NS W/KCL 40MEQ 40 MEQ/1,000 ML BAG IV SCH (13:00)
--- NOTE | 2018-09-01 13:48 | Progress Note ---
Assessment and Plan Assessment and plan: 28-year-old female diagnosed with cholelithiasis in December 2017 at 15 weeks presents to [facility] ED with complaints of severe right upper quadrant and left upper quadrant abdominal pain. Patient states that sometime last night she began to feel nauseous and had emesis 1, followed by severe right upper quadrant pain which radiated to her back and right upper extremity. She describes the pain as sharp and constant and rates it 10/10. Her pain is relieved by pain medicine. KUB0 contrast in GB and no free air Acute cholelithiasis, choledocholithiasis On Levaquin and flagyl GI and surg following Patient is status post ERCP with sphincterectomy stone extraction and CBD placement today. This was done and following that was noted to have a small amount of free intraperitoneal air in the duodenum no leakage of contrast was noted. She was kept nothing by mouth. Upper GI series is planned for the next 24-48 hrs to evaluate for contrast service station NGT to be removed tomorrow if no free air, and will start clear liquid. Cholecystectomy to be arranged outpatient. dilated common bile duct As noted above leukocytosis due to cholelithiasis Hypokalemia, resolved Full code status DVT and GI prophylaxis History Interval history: Patients and examined resting comfortably. wants NGT to come out. Per nursing staff was not toleraing KCL replacement as ordered Hospitalist Physical - Physical exam Narrative exam: Gen: Not in acute distress, Lying in bed HEENT: Normocephalic, atraumatic Neck: supple, no JVD Heart: S1 and S2 reg, no murmurs, rubs or gallop Lungs: Clear, no crackles, no wheeze Abd: soft, tender, non distended, normal BS Ext: No edema, no clubbing, no cyanosis, Neuro: Awake,alert, oriented x3, non focal - Constitutional Vitals: Temp Pulse Resp BP Pulse Ox 98.9 F 95 H 18 108/67 97 09/01/18 07:33 09/01/18 07:33 09/01/18 07:33 09/01/18 07:33 09/01/18 07:33 Results - Labs CBC & Chem 7: 09/01/18 04:14 09/01/18 04:14 Labs: Laboratory Last Values WBC 8.4 K/mm3 (4.5-11.0) 09/01/18 04:14 RBC 3.77 M/mm3 (3.65-5.03) 09/01/18 04:14 Hgb 12.3 gm/dl (10.1-14.3) 09/01/18 04:14 Hct 35.7 % (30.3-42.9) 09/01/18 04:14 MCV 95 fl (79-97) 09/01/18 04:14 MCH 33 pg (28-32) H 09/01/18 04:14 MCHC 35 % (30-34) H 09/01/18 04:14 RDW 12.5 % (13.2-15.2) L 09/01/18 04:14 Plt Count 255 K/mm3 (140-440) 09/01/18 04:14 Lymph % (Auto) 22.3 % (13.4-35.0) 09/01/18 04:14 [place] % (Auto) 6.1 % (0.0-7.3) 09/01/18 04:14 Eos % (Auto) 0.4 % (0.0-4.3) 09/01/18 04:14 Baso % (Auto) 0.5 % (0.0-1.8) 09/01/18 04:14 Lymph # 1.9 K/mm3 (1.2-5.4) 09/01/18 04:14 [place] # 0.5 K/mm3 (0.0-0.8) 09/01/18 04:14 Eos # 0.0 K/mm3 (0.0-0.4) 09/01/18 04:14 Baso # 0.0 K/mm3 (0.0-0.1) 09/01/18 04:14 Seg Neutrophils % 70.7 % (40.0-70.0) H 09/01/18 04:14 Seg Neutrophils # 5.9 K/mm3 (1.8-7.7) 09/01/18 04:14 Sodium 144 mmol/L (137-145) 09/01/18 04:14 Potassium 3.5 mmol/L (3.6-5.0) L 09/01/18 04:14 Chloride 109.3 mmol/L (98-107) H 09/01/18 04:14 Carbon Dioxide 22 mmol/L (22-30) 09/01/18 04:14 16 mmol/L 09/01/18 04:14 BUN 9 mg/dL (7-17) 09/01/18 04:14 0.6 mg/dL (0.7-1.2) L 09/01/18 04:14 Estimated GFR > 60 ml/min 09/01/18 04:14 15 % 09/01/18 04:14 Glucose 79 mg/dL (65-100) 09/01/18 04:14 Calcium 9.3 mg/dL (8.4-10.2) 09/01/18 04:14 Phosphorus 3.30 mg/dL (2.5-4.5) 08/30/18 11:07 Magnesium 1.80 mg/dL (1.7-2.3) 08/30/18 11:07 0.80 mg/dL (0.1-1.2) 09/01/18 04:14 AST 23 units/L (5-40) 09/01/18 04:14 ALT 154 units/L (7-56) H 09/01/18 04:14 87 units/L (35-129) 09/01/18 04:14 6.2 g/dL (6.3-8.2) L 09/01/18 04:14 3.6 g/dL (3.9-5) L 09/01/18 04:14 1.4 % 09/01/18 04:14 36 units/L (13-60) 08/29/18 00:50 HCG, Qual Negative (Negative) 08/29/18 00:50 Yellow (Yellow) 08/29/18 21:47 Clear (Clear) 08/29/18 21:47 6.0 (5.0-7.0) 08/29/18 21:47 Ur Specific [place] 1.010 (1.003-1.030) 08/29/18 21:47 <15 mg/dl mg/dL (Negative) 08/29/18 21:47 Neg mg/dL (Negative) 08/29/18 21:47 Neg mg/dL (Negative) 08/29/18 21:47 Lg (Negative) 08/29/18 21:47 Neg (Negative) 08/29/18 21:47 Neg (Negative) 08/29/18 21:47 < 2.0 mg/dL (<2.0) 08/29/18 21:47 Ur Leukocyte Esterase Tr (Negative) 08/29/18 21:47 4.0 /HPF (0.0-6.0) 08/29/18 21:47 75.0 /HPF (0.0-6.0) 08/29/18 21:47 U Epithel Cells (Auto) 2.0 /HPF (0-13.0) 08/29/18 21:47 Active Medications - Current Medications Current Medications: Generic Name Dose Route Start Last Admin Trade Name Freq PRN Reason Stop Dose Admin Acetaminophen 650 mg 08/29/18 05:11 Tylenol PO Q4H PRN Pain MILD(1-3)/Fever >100.5/BUSTAMANTE Diphenhydramine HCl 25 mg 08/29/18 06:40 08/29/18 06:54 Benadryl IV 25 mg Q6H PRN Administration Itching Heparin Sodium (Porcine) 5,000 unit 08/29/18 10:00 09/01/18 10:11 Heparin SUB-Q 5,000 unit Q12HR HORTENCIA Administration Levofloxacin/Dextrose 500 mg in 100 mls @ 100 mls/hr 08/30/18 06:00 09/01/18 05:53 Levaquin 500mg/100ml IV 100 mls/hr Q24H HORTENCIA Administration Protocol Metronidazole 500 mg in 100 mls @ 100 mls/hr 08/29/18 14:00 09/01/18 07:32 Flagyl 500 Mg/100 Ml IV Infused Q8HR HORTENCIA Infusion Protocol Potassium Chloride/Dextrose/Sod Cl 40 meq in 1,000 mls @ 100 mls/hr 09/01/18 13:00 09/01/18 12:00 D5w/Ns W/Kcl 40meq IV 100 mls/hr DIRECT HORTENCIA Administration Morphine Sulfate 2 mg 08/31/18 18:40 08/31/18 21:31 Morphine IV 2 mg Q4H PRN Administration Pain, Moderate (4-6) Ondansetron HCl 4 mg 08/29/18 05:11 08/31/18 21:30 Zofran IV 4 mg Q8H PRN Administration Nausea And Vomiting Pantoprazole Sodium 40 mg 08/31/18 14:00 09/01/18 10:11 Protonix IV 40 mg QDAY HORTENCIA Administration Phenol 1 spray 08/31/18 15:12 08/31/18 18:37 Chloraseptic MM 1 spray PRN PRN Administration Sore Throat Sodium Chloride 10 ml 08/29/18 10:00 09/01/18 10:43 Sodium Chloride Flush Syringe 10 Ml IV Not Given BID HORTENCIA Sodium Chloride 10 ml 08/29/18 05:11 Sodium Chloride Flush Syringe 10 Ml IV PRN PRN LINE FLUSH
--- NOTE | 2018-09-01 14:55 | Progress Note ---
Assessment and Plan 28 yo F with cholelithiasis, choledocolithiasis s/p ERCP with sphincterotomy, stone extraction, and CBD stent placement Ct scan A/P 08/31/18 - + small amount of retroperitoneal air near duodenum. No leakage of contrast KUB 09/01/18 - normal bowel gas pattern, contrast in GB, no free air Plan: 1. keep NGT to LIWS - explained to patient that we will keep NGT for at least another 24 hours 2. UGI series tomorrow - if negative, will remove NGT and start clear liquids 3. IVF 4. NPO 5. prn pain control 6. CCY to be performed as outpatient. Discussed with case management about having financial counseling see patient Thank you, please call with questions. Subjective Date of service: 09/01/18 Narrative: Pt seen and examined. c/o discomfort with NGT and wants it removed. Minimal abdominal pain. No f/c, cp, sob. Objective Vital Signs - 12hr 09/01/18 09/01/18 09/01/18 04:55 07:33 13:45 Temperature 98.4 F 98.9 F 99.3 F Pulse Rate 64 95 H 75 Respiratory 16 18 18 Rate Blood Pressure 98/64 108/67 105/63 O2 Sat by Pulse 100 97 99 Oximetry - General physical appearance Narrative Exam: Gen: AAOx3. NAD ENT: NGT with bilious output CV: s1, S2+ resp: even and unlabored Abd: soft, ND, mild epigastric TTP. no r/r/g Ext: no c/c/e - Labs 09/01/18 04:14 09/01/18 04:14 Diabetes panel 09/01/18 Range/Units 04:14 Sodium 144 (137-145) mmol/L Potassium 3.5 L (3.6-5.0) mmol/L Chloride 109.3 H (98-107) mmol/L Carbon Dioxide 22 (22-30) mmol/L BUN 9 (7-17) mg/dL Creatinine 0.6 L (0.7-1.2) mg/dL Glucose 79 (65-100) mg/dL Calcium 9.3 (8.4-10.2) mg/dL AST 23 (5-40) units/L ALT 154 H (7-56) units/L Alkaline Phosphatase 87 (35-129) units/L Total Protein 6.2 L (6.3-8.2) g/dL Albumin 3.6 L (3.9-5) g/dL Calcium panel 09/01/18 Range/Units 04:14 Calcium 9.3 (8.4-10.2) mg/dL Albumin 3.6 L (3.9-5) g/dL Pituitary panel 09/01/18 Range/Units 04:14 Sodium 144 (137-145) mmol/L Potassium 3.5 L (3.6-5.0) mmol/L Chloride 109.3 H (98-107) mmol/L Carbon Dioxide 22 (22-30) mmol/L BUN 9 (7-17) mg/dL Creatinine 0.6 L (0.7-1.2) mg/dL Glucose 79 (65-100) mg/dL Calcium 9.3 (8.4-10.2) mg/dL Adrenal panel 09/01/18 Range/Units 04:14 Sodium 144 (137-145) mmol/L Potassium 3.5 L (3.6-5.0) mmol/L Chloride 109.3 H (98-107) mmol/L Carbon Dioxide 22 (22-30) mmol/L BUN 9 (7-17) mg/dL Creatinine 0.6 L (0.7-1.2) mg/dL Glucose 79 (65-100) mg/dL Calcium 9.3 (8.4-10.2) mg/dL Total Bilirubin 0.80 (0.1-1.2) mg/dL AST 23 (5-40) units/L ALT 154 H (7-56) units/L Alkaline Phosphatase 87 (35-129) units/L Total Protein 6.2 L (6.3-8.2) g/dL Albumin 3.6 L (3.9-5) g/dL
[2018-09-02 04:58] VITALS: BP 102/64
[2018-09-02] MEDS: LEVAQUIN 500MG/100ML 500 MG/100 ML BAG IV SCH (05:19)
[2018-09-02] MEDS: FLAGYL 500 MG/100 ML 500 MG/100 ML BAG IV SCH (07:02)
--- NOTE | 2018-09-02 09:03 | Progress Note ---
Assessment and Plan 28 yo F with cholelithiasis, choledocolithiasis s/p ERCP with sphincterotomy, stone extraction, and CBD stent placement Ct scan A/P 08/31/18 - + small amount of retroperitoneal air near duodenum. No leakage of contrast KUB 09/01/18 - normal bowel gas pattern, contrast in GB, no free air UGI series - no leak Plan: 1. dc NGT 2. start clear liquid diet - will dc on clears for 3-4 days and then patient may adv to soft diet as tolerated 3. dc IVF 4. prn pain control 5. CCY to be performed as outpatient. Discussed with case management about having financial counseling see patient OK to DC today if patient tolerates clear liquids. She should follow up in surgery clinic once financial counseling paperwork is completed and approved. Thank you, please call with questions. Subjective Date of service: 09/02/18 Narrative: Pt seen and examined. c/o mild epigastric and RUQ pain. No f/c, n/v. Discomfort from NGT Objective Vital Signs - 12hr 09/01/18 09/02/18 09/02/18 22:00 01:02 04:57 Temperature 98.2 F 98.9 F Pulse Rate 57 L 58 L Respiratory 17 16 16 Rate Respiratory 17 Rate [Abdomen] Blood Pressure 100/57 102/64 O2 Sat by Pulse 100 98 Oximetry - General physical appearance Narrative Exam: Gen: AAOx3. NAD ENT: NGT with clear gastric drainage CV: s1, S2+ resp; even and unlabored Abd: mild epigastric TTP. no r/r/g Ext: no c/c/e - Labs 09/01/18 04:14 09/02/18 09:17
--- NOTE | 2018-09-02 09:29 | Fluoroscopy Report ---
UPPER GI SERIES HISTORY: Pain, evaluate for contrast extravasation. FINDINGS: 22 fluoroscopic images were captured during this exam. A modified upper GI was performed to evaluate the descending duodenum near the ampulla of Vater. A common bile duct stent is in place. Contrast opacifies a normal-appearing stomach and duodenum. There is no evidence for extravasation of contrast in the descending duodenum. IMPRESSION: Normal exam. No evidence for contrast extravasation.
[2018-09-02 10:09] LABS: BUN/Creatinine Ratio 13; Blood Urea Nitrogen 10 mg/dL (7-17); Calcium 9.2 mg/dL (8.4-10.2); Hemolysis Index 6
[2018-09-02] MEDS: HEPARIN SUB-Q SCH (10:46)
[2018-09-02] MEDS: PROTONIX IV SCH (10:46)
--- NOTE | 2018-09-02 11:01 | Gastroenterology Progress Note ---
<VINAY MONTANA - Last Filed: 09/02/18 10:57> Assessment and Plan 1. Choledocolithiasis 2. Abnormal liver enzymes -afebrile -WBC WNL -LFTs trending down -s/p ERCP with sphincterotomy, stone extraction, and CBD stent placement with small amount of retroperitoneal air near duodenum s/p procedure seen on CT -KUB 08/31-normal bowel gas pattern, contrast in GB, no free air -UGI series this am w/o leak -surgery following -CCY on hold (will be done as outpatient) -clinically, patient reports continue RUQ abd pain w/o change. No N/V. -okay to d/c NGT and start on trial of clear liquid -continue to trend labs (lipase today) and supportive care -will follow Subjective Date of service: 09/02/18 Principal diagnosis: choledocolithiasis Interval history: No acute distress. Reports continued RUQ pain w/o change. No N/v. Objective - Constitutional Vitals: Temp Pulse Resp BP Pulse Ox 98.9 F 58 L 16 102/64 98 09/02/18 04:57 09/02/18 04:57 09/02/18 04:57 09/02/18 04:57 09/02/18 04:57 - Labs CBC & Chem 7: 09/01/18 04:14 09/02/18 09:17 Labs: Laboratory Results - last 24 hr 09/02/18 09:17 Sodium 141 Potassium 3.8 Chloride 104.0 Carbon Dioxide 21 L Anion Gap 20 BUN 10 Creatinine 0.8 Estimated GFR > 60 BUN/Creatinine Ratio 13 Glucose 75 Calcium 9.2 Phosphorus 3.20 Magnesium 1.70 <TERRENCE MOLINA - Last Filed: 09/02/18 12:44> Assessment and Plan Patient seen and examined. Agree with note above. tolerating clears at the time of rounds. rest as above. Objective - Constitutional Vitals: Temp Pulse Resp BP Pulse Ox 98.9 F 58 L 16 102/64 98 09/02/18 04:57 09/02/18 04:57 09/02/18 04:57 09/02/18 04:57 09/02/18 04:57 - Labs CBC & Chem 7: 09/01/18 04:14 09/02/18 09:17 Labs: Laboratory Results - last 24 hr 09/02/18 09/02/18 09:17 09:17 Sodium 141 Potassium 3.8 Chloride 104.0 Carbon Dioxide 21 L Anion Gap 20 BUN 10 Creatinine 0.8 Estimated GFR > 60 BUN/Creatinine Ratio 13 Glucose 75 Calcium 9.2 Phosphorus 3.20 Magnesium 1.70 Lipase 33
--- NOTE | 2018-09-02 12:56 | Discharge Summary ---
Providers - Providers Date of Admission: 08/29/18 05:11 Attending physician: BONNIE GREENE MD 08/29/18 05:08 Consult to Physician [CONS] Urgent Comment: Dr. Oleary spoke with Dr. Rader @ [phone] Consulting Provider: IVAN RADER Physician Instructions: Reason For Exam: cholelithiasis, leukocytosis 08/30/18 11:24 Consult to Physician [CONS] Routine Comment: Consulting Provider: TERRENCE MOLINA Physician Instructions: Reason For Exam: choledocolithiasis [facility] Reason for admission: ABDOMINAL PAIN Condition: Stable Hospital course: 28-year-old female diagnosed with cholelithiasis in December 2017 at 15 weeks presents to [facility] with complaints of severe right upper quadrant and left upper quadrant abdominal pain. Patient states that sometime last night she began to feel nauseous and had emesis 1, followed by severe right upper quadrant pain which radiated to her back and right upper extremity. She describes the pain as sharp and constant and rates it 10/10. Her pain is relieved by pain medicine. Patient was seen by GI and also surgery. She underwent an ERCP with sphincterectomy stone extraction and CBD placement, was noted to have free intraperitoneal air in the abdomen and surgery evaluated the patient and placed an NGT with consecrative monitoring, the noted free air resolved. she was advised for cholecystectomy outpatinet. Acute cholelithiasis, choledocholithiasis Dilated common bile duct leukocytosis due to cholelithiasis Hypokalemia, Disposition: -01 TO HOME OR SELFCARE Time spent for discharge: 35 mins Core Measure Documentation - Palliative Care Palliative Care/ Comfort Measures: Not Applicable - Core Measures Any of the following diagnoses?: none Exam - Physical Exam Narrative exam: Gen: Not in acute distress, Lying in bed, PRIOR NOTED NGT DISCONTINUED HEENT: Normocephalic, atraumatic Neck: supple, no JVD Heart: S1 and S2 reg, no murmurs, rubs or gallop Lungs: Clear, no crackles, no wheeze Abd: soft, non tender, non distended, normal BS Ext: No edema, no clubbing, no cyanosis, Neuro: Awake,alert, oriented x3, non focal - Constitutional Vitals: Temp Pulse Resp BP Pulse Ox 98.9 F 58 L 16 102/64 98 09/02/18 04:57 09/02/18 04:57 09/02/18 04:57 09/02/18 04:57 09/02/18 04:57 Plan Activity: advance as tolerated, fall precautions Diet: clear liquids (for 4 days then advance to full liquid) Special Instructions: record daily BP diary Follow up with: [facility] EMERY [Primary Care Provider] - 3-5 Days IVAN RADER DO [Staff Physician] - 7 Days TERRENCE MOLINA MD [Staff Physician] - 14 Days Prescriptions: Pantoprazole [Protonix] 40 mg PO QDAY #30 tablet traMADol [Ultram] 50 mg PO Q6HR PRN #10 tablet PRN Reason: Pain
== END 2018-09-02 15:15 | disposition home or self-care (01) | DRG 446 ==
LOC: ED 23:49 → 3B-SURG 08-29 05:11
PROVIDERS: ADMIT Internal Medicine; ATTEND Internal Medicine
PROC: 0F798DZ Dilation of Common Bile Duct with Intraluminal Device, Via Natural or Artificial Opening Endoscopic (ICD-10-PCS; principal; 2018-08-31)
PROC: BF131ZZ Fluoroscopy of Gallbladder and Bile Ducts using Low Osmolar Contrast (ICD-10-PCS; 2018-08-31)
PROC: 0FC98ZZ Extirpation of Matter from Common Bile Duct, Via Natural or Artificial Opening Endoscopic (ICD-10-PCS; 2018-08-31)
DX: K80.42 Calculus of bile duct with acute cholecystitis without obstruction (principal); D72.829 Elevated white blood cell count, unspecified; E87.6 Hypokalemia
CPT/HCPCS: 36415; 74018; 74176; 74181; 74241; 74330; 76705; 80048; 80053; 81001; 83690; 83735; 84100; 84703; 85025; 85027; 87116; G0378; C1726; C9113; J0171; J0500; J1170; J1200; J1644; J1956; J2250; J2270; J2405; J2704; J3010; J3480; J7030; Q9963; Q9967